=== PATIENT | female | born 1945 | race Caucasian/White ===

== ENCOUNTER 2018-08-26 11:27 | Inpatient (IN) | payer MEDICARE, OTHER ==
--- NOTE | 2018-08-26 12:30 | ED ---
General Adult HPI - General Chief complaint: Extremity Problem,Nontraumatic Stated complaint: HEAVINESS IN LEGS Time Seen by Provider: 08/26/18 11:35 Source: patient, RN notes reviewed Mode of arrival: ambulatory Limitations: no limitations - History of Present Illness Initial comments: This is a 73-year-old female who presents to the emergency department with bilateral leg weakness. Patient states it started on Saturday morning is gotten progressively worse. Patient denies any numbness. Patient denies any urinary incontinence or urinary retention. Patient denies any injury or trauma. Patient states she's having a hard time moving her legs to walk. Patient states she's very unsteady on her feet and is afraid she'll follow-up. Patient states she tells her legs to move and it takes a second or 2 for them to move and then when it does move it's very slow. Patient states her lower legs seemed to be moving okay it's the gross movement of her overall leg that it 's difficult to do. Patient denies any upper extremity weakness or numbness. Patient denies any headache. Patient denies any visual disturbance or speech disturbance. Patient states she's been treated for sinus problems recently. Patient denies any chest pain difficulty breathing shortness of breath. Patient denies any fever or chills.. - Related Data Home Medications Medication Instructions Recorded Confirmed Acetaminophen [Tylenol Extra 1,000 mg PO Q6H PRN 08/26/18 08/26/18 Strength] Atorvastatin [Lipitor] 10 mg PO HS 08/26/18 08/26/18 Cephalexin [Keflex] 500 mg PO Q6H 08/26/18 08/26/18 Cholecalciferol (Vitamin D3) 2,000 unit PO DAILY 08/26/18 08/26/18 [Vitamin D3] Guaifenesin/Dextromethorphan 1 tab PO Q6H PRN 08/26/18 08/26/18 [Coricidin Hbp Softgel] LORazepam [Ativan] 0.5 mg PO HS PRN 08/26/18 08/26/18 Levothyroxine Sodium 100 mcg PO HS 08/26/18 08/26/18 Allergies Allergy/AdvReac Type Severity Reaction Status Date / Time Tetracyclines Allergy Anaphylaxis Verified 08/26/18 12:39 Review of Systems ROS Statement: Those systems with pertinent positive or pertinent negative responses have been documented in the HPI. ROS Other: All systems not noted in ROS Statement are negative. Past Medical History Past Medical History: No Reported History History of Any Multi-Drug Resistant Organisms: None Reported Additional Past Surgical History / Comment(s): fatty tumors removed 1971 Past Psychological History: No Psychological Hx Reported Smoking Status: Current every day smoker Past Alcohol Use History: Occasional Past Drug Use History: None Reported General Exam - General Exam Comments Initial Comments: GENERAL: Patient is well-developed and well-nourished. Patient is nontoxic and well- hydrated and is in mild distress. ENT: Neck is soft and supple. No significant lymphadenopathy is noted. Oropharynx is clear. Moist mucous membranes. Neck has full range of motion without eliciting any pain. EYES: The sclera were anicteric and conjunctiva were pink and moist. Extraocular movements were intact and pupils were equal round and reactive to light. Eyelids were unremarkable. PULMONARY: Unlabored respirations. Good breath sounds bilaterally. No audible rales rhonchi or wheezing was noted. CARDIOVASCULAR: There is a regular rate and rhythm without any murmurs gallops or rubs. ABDOMEN: Soft and nontender with normal bowel sounds. No palpable organomegaly was noted. There is no palpable pulsatile mass. SKIN: Skin is clear with no lesions or rashes and otherwise unremarkable. NEUROLOGIC: Patient is alert and oriented x3. Cranial nerves II through XII are grossly intact. Patient has proximal muscle leg weakness. Sensory is normal. Normal speech, volume and content. Symmetrical smile. Patient has patellar reflexes bilaterally but the left is stronger than the right. MUSCULOSKELETAL: Soft proximal muscles on the legs seemed to be weak bilaterally patient's plantar and dorsiflexion are normal bilaterally patient's sensation is normal. LYMPHATICS: No significant lymphadenopathy is noted PSYCHIATRIC: Normal psychiatric evaluation. Normal interpersonal interactions appears functionally intact in deals appropriately with others. No signs of depression. No signs of anxiety. Limitations: no limitations Course Vital Signs 08/26/18 11:34 Temperature 97.9 F Pulse Rate 102 H Respiratory 18 Rate Blood Pressure 123/78 O2 Sat by Pulse 97 Oximetry Medical Decision Making - Medical Decision Making EKG shows sinus tachycardia at 101 bpm MD interval 236 dresses 78 QT interval 362 QTC is 469. Patient's EKG shows no ST segment elevation or T wave abnormalities are noted. CT of the brain shows no acute abnormality. I spoke with Dr. Cabrera and he agreed to admit the patient admitted the patient wrote admitting orders I consult the neurology. - Lab Data Result diagrams: 08/26/18 12:11 08/26/18 12:11 Lab Results 08/26/18 08/26/18 08/26/18 Range/Units 12:11 12:11 12:11 WBC 8.2 (3.8-10.6) k/uL RBC 4.92 (3.80-5.40) m/uL Hgb 15.8 (11.4-16.0) gm/dL Hct 47.4 H (34.0-46.0) % MCV 96.3 (80.0-100.0) fL MCH 32.1 (25.0-35.0) pg MCHC 33.3 (31.0-37.0) g/dL RDW 13.2 (11.5-15.5) % Plt Count 257 (150-450) k/uL Neutrophils % 75 % Lymphocytes % 13 % Monocytes % 7 % Eosinophils % 1 % Basophils % 1 % Neutrophils # 6.2 (1.3-7.7) k/uL Lymphocytes # 1.1 (1.0-4.8) k/uL Monocytes # 0.6 (0-1.0) k/uL Eosinophils # 0.1 (0-0.7) k/uL Basophils # 0.1 (0-0.2) k/uL PT (9.0-12.0) sec INR (<1.2) APTT (22.0-30.0) sec Sodium 138 (137-145) mmol/L Potassium 4.3 (3.5-5.1) mmol/L Chloride 101 (98-107) mmol/L Carbon Dioxide 26 (22-30) mmol/L Anion Gap 11 mmol/L BUN 16 (7-17) mg/dL Creatinine 0.99 (0.52-1.04) mg/dL Est GFR (CKD-EPI)AfAm 66 (>60 ml/min/1.73 sqM) Est GFR (CKD-EPI)NonAf 57 (>60 ml/min/1.73 sqM) Glucose 171 H (74-99) mg/dL Calcium 9.7 (8.4-10.2) mg/dL Total Bilirubin 0.6 (0.2-1.3) mg/dL AST 25 (14-36) U/L ALT 27 (9-52) U/L Alkaline Phosphatase 49 (38-126) U/L Total Creatine Kinase 54 (30-135) U/L Total Protein 7.4 (6.3-8.2) g/dL Albumin 4.1 (3.5-5.0) g/dL 08/26/18 Range/Units 12:11 WBC (3.8-10.6) k/uL RBC (3.80-5.40) m/uL Hgb (11.4-16.0) gm/dL Hct (34.0-46.0) % MCV (80.0-100.0) fL MCH (25.0-35.0) pg MCHC (31.0-37.0) g/dL RDW (11.5-15.5) % Plt Count (150-450) k/uL Neutrophils % % Lymphocytes % % Monocytes % % Eosinophils % % Basophils % % Neutrophils # (1.3-7.7) k/uL Lymphocytes # (1.0-4.8) k/uL Monocytes # (0-1.0) k/uL Eosinophils # (0-0.7) k/uL Basophils # (0-0.2) k/uL PT 10.4 (9.0-12.0) sec INR 1.1 (<1.2) APTT 25.0 (22.0-30.0) sec Sodium (137-145) mmol/L Potassium (3.5-5.1) mmol/L Chloride (98-107) mmol/L Carbon Dioxide (22-30) mmol/L Anion Gap mmol/L BUN (7-17) mg/dL Creatinine (0.52-1.04) mg/dL Est GFR (CKD-EPI)AfAm (>60 ml/min/1.73 sqM) Est GFR (CKD-EPI)NonAf (>60 ml/min/1.73 sqM) Glucose (74-99) mg/dL Calcium (8.4-10.2) mg/dL Total Bilirubin (0.2-1.3) mg/dL AST (14-36) U/L ALT (9-52) U/L Alkaline Phosphatase (38-126) U/L Total Creatine Kinase (30-135) U/L Total Protein (6.3-8.2) g/dL Albumin (3.5-5.0) g/dL Disposition Clinical Impression: Proximal leg weakness Disposition: ADMITTED IP TO THIS HOSP Referrals: Bryan Valdivia MD [Primary Care Provider] - 1-2 days Time of Disposition: 13:12
--- NOTE | 2018-08-26 12:35 | CT ---
EXAMINATION TYPE: CT brain wo con DATE OF EXAM: 08/26/2018 HISTORY: Leg heaviness, neurodeficits per order. CT DLP: 723.7 mGycm. Automated Exposure Control for Dose Reduction was Utilized. TECHNIQUE: CT scan of the head is performed without contrast. COMPARISON: None. FINDINGS: There is no acute intracranial hemorrhage or midline shift identified. There is diffuse v entricular and sulcal prominence consistent with diffuse age-related cerebral atrophy. Some low atten uation periventricular white matter around frontal horns is present. The globes are intact and the v isualized sinuses are clear. IMPRESSION: No acute intracranial hemorrhage or midline shift. There is mild to minimal diffuse age -related cerebral atrophy and chronic small vessel ischemic change noted. If clinical concern for acute stroke persists further investigation with MRI study may be warranted.
--- NOTE | 2018-08-26 12:35 | XR ---
EXAMINATION TYPE: XR chest 2V DATE OF EXAM: 08/26/2018 COMPARISON: 02/14/2016 HISTORY: Altered mental status TECHNIQUE: Frontal and lateral views of the chest are obtained. FINDINGS: There is no focal air space opacity, pleural effusion, or pneumothorax seen. The cardiac silhouette size is within normal limits. The osseous structures are intact. There is pulmonary hype rinflation and biapical lucency indicative of underlying COPD. Calcified breast implants are seen kenryo aterally. Nonspecific sclerotic focus is seen within the right humeral head. Intervertebral disc calc ification is seen of the thoracolumbar junction. IMPRESSION: No acute cardiopulmonary process. Radiographic sequela of COPD.
[2018-08-26 12:39] LABS: Basophils # (A) 0.1 k/uL (0-0.2); Basophils % (A) 1 %; Eosinophils # (A) 0.1 k/uL (0-0.7); Eosinophils % (A) 1 %; HCT 47.4 % (34.0-46.0); HGB 15.8 gm/dL (11.4-16.0); Lymphocytes # (A) 1.1 k/uL (1.0-4.8); Lymphocytes % (A) 13 %; MCH 32.1 pg (25.0-35.0); MCHC 33.3 g/dL (31.0-37.0); MCV 96.3 fL (80.0-100.0); Mean Platelet Volume 6.9; Monocytes # (A) 0.6 k/uL (0-1.0); Monocytes % (A) 7 %; Neutrophils # (A) 6.2 k/uL (1.3-7.7); Neutrophils % (A) 75 %; Platelet Count 257 k/uL (150-450); RBC 4.92 m/uL (3.80-5.40); RDW 13.2 % (11.5-15.5); WBC 8.2 k/uL (3.8-10.6)
[2018-08-26 12:48] LABS: INR 1.1 (<1.2); Prothrombin Time 10.4 sec (9.0-12.0)
[2018-08-26 12:51] LABS: Albumin 4.1 g/dL (3.5-5.0); Calcium 9.7 mg/dL (8.4-10.2); Potassium 4.3 mmol/L (3.5-5.1); Total Bilirubin 0.6 mg/dL (0.2-1.3); Total Protein 7.4 g/dL (6.3-8.2)
[2018-08-26 13:07] LABS: Creatine Kinase 54 U/L (30-135)
[2018-08-26 13:19] LABS: Creatine Kinase MB 0.7 ng/mL (0.0-2.4); Troponin I <0.012 ng/mL (0.000-0.034)
[2018-08-26] MEDS ORDERED: LORazepam 0.5 MG TAB PO PRN (13:53)
[2018-08-26] MEDS ORDERED: ONDANSETRON 4 MG/2 ML VIAL IVP PRN (13:53)
--- NOTE | 2018-08-26 14:17 | P.HPIM ---
History of Present Illness H&P Date: 08/26/18 Chief Complaint: Lower extremity weakness This is a 73-year-old female with past medical history noted below who presented to the emergency room for further evaluation of lower extremity weakness. Patient said that her problems started on Saturday and it's been getting progressively worse. Patient reported that the weakness is mostly in the proximal lower extremities mostly in her thighs. She said that she was having trouble getting up and walking around. She also had trouble with her balance. Her friend brought her walker that helped her significantly as her balance. Patient otherwise denies any numbness or tingling. No weakness anywhere else in her body. No headache or vision changes. No trauma. No back pain. No fevers or chills. Patient has been taking statin for a long time. No muscle pain. No other complaints at all. Patient was evaluated by me in the emergency room and her physical exam showed 5 /5 muscle strength all over her body including lower extremity. Patient was able to get up and walk around the room with no difficulty. She informed me that her weakness probably resolved. She underwent a computed tomography scan of the brain in the emergency room was no acute intracranial findings. Most of her lab work was within normal range. Review of Systems Review of system: 14 points review of systems were obtained and were negative except to what were mentioned in the HPI. Past Medical History Past Medical History: No Reported History History of Any Multi-Drug Resistant Organisms: None Reported Additional Past Surgical History / Comment(s): fatty tumors removed 1971 Past Psychological History: No Psychological Hx Reported Smoking Status: Current every day smoker Past Alcohol Use History: Occasional Past Drug Use History: None Reported Medications and Allergies Home Medications Medication Instructions Recorded Confirmed Type Acetaminophen [Tylenol Extra 1,000 mg PO Q6H PRN 08/26/18 08/26/18 History Strength] Atorvastatin [Lipitor] 10 mg PO HS 08/26/18 08/26/18 History Cephalexin [Keflex] 500 mg PO Q6H 08/26/18 08/26/18 History Cholecalciferol (Vitamin D3) 2,000 unit PO DAILY 08/26/18 08/26/18 History [Vitamin D3] Guaifenesin/Dextromethorphan 1 tab PO Q6H PRN 08/26/18 08/26/18 History [Coricidin Hbp Softgel] LORazepam [Ativan] 0.5 mg PO HS PRN 08/26/18 08/26/18 History Levothyroxine Sodium 100 mcg PO HS 08/26/18 08/26/18 History Allergies Allergy/AdvReac Type Severity Reaction Status Date / Time Tetracyclines Allergy Anaphylaxis Verified 08/26/18 12:39 Physical Exam Vitals: Vital Signs Temp Pulse Pulse Resp BP BP Pulse Ox 08/26/18 13:20 97.7 F 93 18 151/70 98 08/26/18 13:13 88 18 135/67 97 08/26/18 11:34 97.9 F 102 H 18 123/78 97 Intake and Output 08/25/18 08/26/18 08/26/18 22:59 06:59 14:59 Other: Weight 49.895 kg General: The patient is awake and alert, in no distress Eye: there is normal conjunctiva bilaterally. Neck: The neck is supple, there is no JVD. Cardiovascular: Normal S1-S2, no S3-S4, no murmurs. Respiratory: Lungs clear to auscultation bilaterally Gastrointestinal: Abdomen is soft, nontender Musculoskeletal: There is no pedal edema. Neurological:. Speech is normal. Skin: Skin is warm and dry Results CBC & Chem 7: 08/26/18 12:11 08/26/18 12:11 Labs: Abnormal Lab Results - Last 24 Hours (Table) 08/26/18 08/26/18 Range/Units 12:11 12:11 Hct 47.4 H (34.0-46.0) % Glucose 171 H (74-99) mg/dL Assessment and Plan Assessment: 1. Transient proximal weakness of the lower extremity, now resolved. Computed tomography scan of the brain showed no acute stroke. I really doubt a CVA. I would order CT of the lumbar spine for further evaluation. Patient denies any back pain. I would also order inflammatory marker including ESR and CRP as well as LDH for further evaluation. I doubt any myositis. I would hold her statin for now. PT/OT evaluation. Neurology consulted. 2. Hypothyroidism, on levothyroxine. I would check thyroid function test 3. Generalized anxiety disorder Today, I reviewed her medication list and lab work results. Continue current regimen. Appreciate neurology recommendations. PT/OT evaluation. Patient was updated about her current condition. All of her questions answered to his satisfaction.
[2018-08-26 14:21] VITALS: RESP 16
--- NOTE | 2018-08-26 14:53 | CT ---
EXAMINATION TYPE: CT lumbar spine w con DATE OF EXAM: 08/26/2018 COMPARISON: Lumbar spine x-ray January 13, 2015 HISTORY: Leg heaviness, lower ext weakness CT DLP: 323.2 mGycm Automated exposure control for dose reduction was used. CONTRAST: CT scan of the lumbar is performed with IV Contrast, patient injected with 100 mL of Isovue 300. Enhanced CT of the lumbar spine was performed. Bone and soft tissue window settings are submitted as well as coronal and sagittal reconstructions. There are 5 lumbar-type vertebra redemonstrated though there is sacralization of right L5 segment aga in seen. This asymmetric assimilation on the right may cause patient pain, correlate clinically. Vert ebral body heights and disc space heights are fairly well-maintained. No acute fracture or dislocatio n is seen. Spinal canal is preserved. No large posterior disc herniations are present on sagittal april ges. Hyperdense material is noted at several levels most prominent at posterior T12-L1 level suspecte d calcification. There is mild to moderate multilevel anterior and lateral spurring. Review of axial images shows T12-L1 and L1-L2 levels to appear within normal limits. Axial images at L2-L3 level show mild to moderate broad disc bulge mildly effacing anterior thecal sa c on axial image 29 and causing mild bilateral anterior inferior neural foraminal narrowing. Axial images at L3-L4 level show mild facet degenerative changes bilaterally. There is mild/moderate broad-based posterior disc protrusion effacing anterior thecal sac and axial image 40. There is mild to moderate bilateral anterior inferior neural foraminal narrowing at this level identified. Axial images at L4-L5 level show moderate facet degenerative changes bilaterally. There is broad disc bulge minimally effacing anterior thecal sac. Bilateral neural foramina are patent. Axial images at L5-S1 level show mild to moderate right greater than left facet degenerative changes bilaterally. Spinal canal is preserved and there is increased prominence of epidural fat at this leve l. Bilateral neural foramina are patent. No suspicious enhancement is seen. There is moderate plaque in the infrarenal abdominal aorta extendi ng into branch vessels. Liver is mildly enlarged. Some wall thickening in the visualized stomach is f elt present, correlate for gastritis. IMPRESSION: No suspicious disc herniation seen to account for patient's radiculopathy type symptoms. Other findings as noted above.
[2018-08-26 15:02] LABS: C Reactive Protein <5.0 mg/L (<10.0); LDH 457 U/L (313-618)
[2018-08-26] MEDS: ACETAMINOPHEN TAB 325 MG TAB PO PRN ×2 (15:07→21:49)
[2018-08-26 16:31] LABS: Appearance,Urine Clear (Clear); Bilirubin,Urine Negative (Negative); Blood,Urine Small (Negative); Color,Urine Yellow; Glucose,Urine (UA) Negative (Negative); Ketones,Urine Negative (Negative); Leukocyte Esterase,Urine Negative (Negative); Mucus,Urine Rare /hpf; Nitrite,Urine Negative (Negative); PH, Urine 6.5 (5.0-8.0); Protein,Urine Trace (Negative); RBC,Urine 7 /hpf (0-5); Squamous Epithelial Cell,Urine 2 /hpf (0-4)
[2018-08-26 16:32] LABS: Specific Gravity,Urine >1.050 (1.001-1.035)
[2018-08-26] MEDS ORDERED: LEVOTHYROXINE 100 MCG TAB PO SCH (21:00)
[2018-08-26] MEDS: HEPARIN SODIUM,PORCINE 5,000 UNIT/ML 1 ML VIAL SQ SCH (21:49)
[2018-08-27 05:15] VITALS: BP 145/75; PULSE 82; TEMP 97.3
[2018-08-27] MEDS: ACETAMINOPHEN TAB 325 MG TAB PO PRN (06:23)
[2018-08-27 08:06] LABS: Cholesterol 149 mg/dL (<200); HDL Cholesterol 61 mg/dL (40-60); LDL Cholesterol,Calculated 69 mg/dL (0-99); Triglycerides 96 mg/dL (<150)
--- NOTE | 2018-08-27 08:47 | CONS ---
CONSULTATION DATE OF CONSULTATION: 08/26/2018 CHIEF COMPLAINT: Lower extremity weakness. HISTORY OF PRESENT ILLNESS: Mrs. Hebert is a pleasant 73-year-old female who is being evaluated today on 08/26/2018 by the Neurology Service per the request of Dr. Cabrera for lower extremity weakness. The patient was brought into [facility] emergency room with the complaints of progressive lower extremity weakness that appears to be more proximal than distal. She states that she first noticed these symptoms on Saturday and they have been progressively getting worse. She reports mild muscle soreness but denies anything severe. She denies any recent injury or illness. In reviewing her home medications, she does take Lipitor 10 mg daily at home. She denies any numbness or tingling and denies any low back pain. A CT scan of the brain was done, which was normal. A CT scan of the lumbar spine was done which showed disc bulges at L3-L4 and L4-L5 with mild neural foraminal narrowing. Again, the patient denies any low back pain or lower extremity radicular pain. Her CBC and cardiac enzymes were normal. Her comprehensive metabolic profile was normal except for hyperglycemia at 171. At the time of my evaluation, she reports minimal improvements in her symptoms. PAST MEDICAL HISTORY: Dyslipidemia, arthritis, hypothyroidism. SOCIAL HISTORY: The patient is a current every day smoker. She occasionally drinks alcohol. She denies any drug use. FAMILY HISTORY: Noncontributory. HOME MEDICATIONS: Reviewed in the chart. ALLERGIES: TETRACYCLINE. REVIEW OF SYSTEMS: CONSTITUTIONAL: Negative. EYES: Negative. ENT: Negative. CARDIOVASCULAR: Negative. RESPIRATORY: Negative. NEUROLOGICAL: As mentioned above. GASTROINTESTINAL: Negative. GENITOURINARY: Negative. DERMATOLOGICAL: Negative. MUSCULOSKELETAL: Positive for occasional joint pain. ENDOCRINE: Positive for hypothyroidism. PHYSICAL EXAM: Vital signs show a temperature of 97.8, pulse 65, respirations 16, blood pressure 169/90. GENERAL APPEARANCE: The patient is a well-developed, elderly female who appears to be in no acute distress. HEENT: Normocephalic, atraumatic, no facial asymmetry is seen. Extraocular muscles are intact. NECK: Supple with no masses felt. CARDIOVASCULAR: Regular rate and rhythm. ABDOMEN: Nontender, nondistended. EXTREMITIES: Showed no edema or clubbing. NEUROLOGICAL EXAM: The patient is awake and oriented x3. Speech and language are normal. Strength is full in all four extremities except for 5-/5 strength in bilateral proximal lower extremities. Sensory exam was normal to light touch in all four extremities. No pronator drift is seen. No facial asymmetry is seen on cranial nerve testing. IMPRESSION: 1. Proximal lower extremity weakness. 2. 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 3. History of dyslipidemia. RECOMMENDATION: The patient's weakness is unchanged at this time and she continues to have mild proximal lower extremity weakness on my examination. Her workup has been negative thus far. Except her CT scan of the lumbar spine did show disc bulges with neural foraminal narrowing. The patient denies any low back pain or any radicular pain and has no sensory deficit on my examination. Also, her straight leg raise sign was negative. I doubt that her weakness is due to her CT scan of the lumbar spine finding. I will discontinue Lipitor for now and keep her on IV fluids. Physical Therapy has been consulted. If her weakness improves by tomorrow, she will be cleared for discharge from a neurology standpoint. If her symptoms continue to worsen, she will likely need a muscle biopsy. Continue neuro checks. I will continue to follow with you. Further recommendations to follow. Thank you for allowing me to participate in the care of your patient. If you have any questions, please feel free to contact me. THERESE / TETE: [id number] /
[2018-08-27] MEDS: HEPARIN SODIUM,PORCINE 5,000 UNIT/ML 1 ML VIAL SQ SCH (08:51)
--- NOTE | 2018-08-27 09:46 | P.DS ---
Providers Date of admission: 08/26/18 13:13 Expected date of discharge: 08/27/18 Attending physician: Nahomy Cabrera Consults: 08/26/18 13:13 Consult Physician Routine Consulting Provider: Jose Gonzales Consult Reason/Comments: Proximal leg weakness bilaterally Do you want consulting provider notified?: Yes Primary care physician: [facility] Course: This is a 73-year-old female with past medical history significant for hypothyroidism and hyperlipidemia who presented to the emergency room with transient proximal lower extremity weakness. This started couple of days prior to her presentation and almost resolved upon presentation to the emergency room. Patient was evaluated and a computed tomography scan of the brain showed no acute intracranial findings. Computed tomography scan of the lumbar spine showed mild degenerative disc disease with mild disc bulging but no acute findings otherwise. Most of the findings are appropriate for her age. Patient herself did not have any back pain, lower extremity numbness or tingling, or radiculopathy. Her symptoms were possibly attributed to statin induced myopathy. Patient is been on statin for several years. This might be still a possibility versus physical debility. Patient was seen and evaluated by physical therapy. She is to get up and walk up and down the [place] with no difficulty. Inflammatory markers checked and negative including ESR and CRP. Creatinine kinase was normal. Patient was seen and evaluated by neurology. No further testing is recommended at this time. We will plan to discontinue statin for now and discharge patient home. Patient wanted to go home to spend the holidays at home. She was advised to return to the emergency room if she notices worsening weakness of the lower extremities. Otherwise she will follow- up with her primary care physician as directed Patient Condition at Discharge: Fair Plan - Discharge Summary Discharge Rx Participant: No New Discharge Prescriptions: Continue Acetaminophen [Tylenol Extra Strength] 1,000 mg PO Q6H PRN PRN Reason: Pain LORazepam [Ativan] 0.5 mg PO HS PRN PRN Reason: Anxiety Cholecalciferol (Vitamin D3) [Vitamin D3] 2,000 unit PO DAILY Levothyroxine Sodium 100 mcg PO HS Guaifenesin/Dextromethorphan [Coricidin Hbp Softgel] 1 tab PO Q6H PRN PRN Reason: Cold Symptoms Discontinued Cephalexin [Keflex] 500 mg PO Q6H Atorvastatin [Lipitor] 10 mg PO HS Discharge Medication List Acetaminophen [Tylenol Extra Strength] 1,000 mg PO Q6H PRN 08/26/18 [History] Cholecalciferol (Vitamin D3) [Vitamin D3] 2,000 unit PO DAILY 08/26/18 [History] Guaifenesin/Dextromethorphan [Coricidin Hbp Softgel] 1 tab PO Q6H PRN 08/26/18 [ History] LORazepam [Ativan] 0.5 mg PO HS PRN 08/26/18 [History] Levothyroxine Sodium 100 mcg PO HS 08/26/18 [History] Follow up Appointment(s)/Referral(s): Bryan Valdivia MD [Primary Care Provider] - 3 Days Discharge Disposition: HOME SELF-CARE
[2018-08-27 10:57] VITALS: BMI 17.7
== END 2018-08-27 11:44 | disposition home or self-care (01) | DRG 93 ==
LOC: EC 11:27 → 3SCARD 13:13 → 3NMEDONC 13:46
PROVIDERS: ADMIT Internal Medicine; ATTEND Internal Medicine
DX: G72.0 Drug-induced myopathy (principal); E03.9 Hypothyroidism, unspecified; M51.26 Other intervertebral disc displacement, lumbar region; M51.36 Other intervertebral disc degeneration, lumbar region; M19.90 Unspecified osteoarthritis, unspecified site; E78.5 Hyperlipidemia, unspecified; R73.9 Hyperglycemia, unspecified; R26.81 Unsteadiness on feet; F17.210 Nicotine dependence, cigarettes, uncomplicated; F41.1 Generalized anxiety disorder; T46.6X5A Adverse effect of antihyperlipidemic and antiarteriosclerotic drugs, initial encounter; Z79.890 Hormone replacement therapy; Z79.899 Other long term (current) drug therapy; Z88.1 Allergy status to other antibiotic agents
CPT/HCPCS: 36415; 70450; 71046; 72132; 80053; 80061; 81001; 82550; 82553; 83615; 84443; 84484; 85025; 85610; 85652; 85730; 86038; 86140; 87086; 93005; 99285

== ENCOUNTER → 2018-09-10 | Outpatient (CLI) | payer MEDICARE, OTHER ==
[2018-09-10 20:22] LABS: T4, Free (Free Thyroxine) 2.6 ng/dL (0.80-1.80)
== END | disposition home or self-care (01) ==
LOC: LABWHC1 12:23
PROVIDERS: ATTEND Psychiatry & Neurology Pain Medicine
DX: R53.83 Other fatigue (principal); R53.1 Weakness
CPT/HCPCS: 36415; 82306; 84439; 84443; 84481

== ENCOUNTER → 2019-03-10 | Outpatient (CLI) | payer MEDICARE, OTHER ==
[~2019-03-10] MED LIST: IODINE/POTASS IOD (LUGOLS) 8 ML BTL TOPICAL ONE
[2019-03-10 11:52] LABS: HCT 47.9 % (34.0-46.0); HGB 15.4 gm/dL (11.4-16.0); MCH 30.9 pg (25.0-35.0); MCHC 32.1 g/dL (31.0-37.0); MCV 96.1 fL (80.0-100.0); Mean Platelet Volume 7.8; Platelet Count 304 k/uL (150-450); RBC 4.98 m/uL (3.80-5.40); RDW 13.3 % (11.5-15.5); WBC 6.7 k/uL (3.8-10.6)
[2019-03-10 12:08] LABS: Albumin 4.2 g/dL (3.5-5.0); Calcium 9.7 mg/dL (8.4-10.2); Potassium 4.4 mmol/L (3.5-5.1); Total Bilirubin 0.6 mg/dL (0.2-1.3); Total Protein 7.3 g/dL (6.3-8.2)
--- NOTE | 2019-03-11 08:19 | NM ---
EXAMINATION TYPE: NM DatScan Brain SPECT DATE OF EXAM: 03/10/2019 COMPARISON: CT brain dated 08/26/2018 HISTORY: Essential tremor TECHNIQUE: 10 drops of Lugol's solution was administered 1 hour prior to injection as a thyroid bloc gisela agent. After the administration of 4.4 mCi I-123 Ioflupane DaTscan. Images obtained [address] injection. SPECT images of the brain were acquired with axial and coronal reconstructions. FINDINGS: The DaTSCAN demonstrates normal uptake of tracer throughout the striata. Consequently there is no itzel dence of loss of the pre-synaptic dopaminergic terminals on this investigation. IMPRESSION: This normal appearance is against a diagnosis of idiopathic Parkinson?s disease (PD) or a Parkinsonia n syndrome (PS) and is seen in healthy individuals and also patients with essential tremor (ET), drug induced parkinsonism, and vascular pseudo-parkinsonism.
== END | disposition home or self-care (01) ==
LOC: RADNMMAIN 10:53
PROVIDERS: ATTEND Psychiatry & Neurology Neurology
DX: G25.0 Essential tremor (principal); R42 Dizziness and giddiness; Z51.81 Encounter for therapeutic drug level monitoring
CPT/HCPCS: 83519; 80053; 82550; 85027; 78607; 36415; A9584

== ENCOUNTER 2019-04-29 09:42 | Inpatient (IN) | payer MEDICARE, OTHER ==
[2019-04-29] MEDS ORDERED: SODIUM CHLORIDE 0.9% 1,000 ML IV STA (09:58)
[2019-04-29] MEDS ORDERED: SODIUM CHLORIDE 0.9% 500 ML 500 ML IV STA (09:58)
[2019-04-29] MEDS ORDERED: IPRATROPIUM-ALBUTEROL 3 ML NEB INHALATION STA (10:00)
--- NOTE | 2019-04-29 10:06 | ED ---
Weakness HPI - General Chief complaint: Weakness Stated complaint: Weakness Time Seen by Provider: 04/29/19 09:42 Source: patient, EMS, RN notes reviewed, old records reviewed Mode of arrival: EMS Limitations: altered mental status, physical limitation - History of Present Illness Initial comments: Is a 74-year-old female history of CVA with minimal left-sided residual effects who was brought in because of generalized weakness nausea and a headache this morning. Apparently she's not been doing well last several days. She was noted have a room air pulse ox of 80% when up into the high 90s on oxygen. Per paramedics patient was able to answer simple yes no questions but with further discussion she would have garbled speech. No other complaints no reports of fevers chills sweats cough phlegm production or dysuria. MD Complaint: generalized weakness - Related Data Home Medications Medication Instructions Recorded Confirmed Cholecalciferol (Vitamin D3) 2,000 unit PO DAILY 08/26/18 04/29/19 [Vitamin D3] LORazepam [Ativan] 0.5 mg PO HS 08/26/18 04/29/19 Levothyroxine Sodium 100 mcg PO HS 08/26/18 04/29/19 Dm/Acetaminophen/Doxylamine [Vicks 1 cap PO HS 04/29/19 04/29/19 Nyquil Liquicaps] Allergies Allergy/AdvReac Type Severity Reaction Status Date / Time Tetracyclines Allergy Anaphylaxis Verified 04/29/19 10:02 Review of Systems ROS Statement: Those systems with pertinent positive or pertinent negative responses have been documented in the HPI. ROS Other: All systems not noted in ROS Statement are negative. Past Medical History Past Medical History: Hyperlipidemia, Osteoarthritis (OA), Thyroid Disorder Additional Past Medical History / Comment(s): Recent sinus problem treated with antibiotics, hypothyroid, borderline high cholesterol. arthritis in hands, shoulders and knees. History of Any Multi-Drug Resistant Organisms: None Reported Additional Past Surgical History / Comment(s): fatty tumors removed from breasts in 1971 Past Anesthesia/Blood Transfusion Reactions: No Reported Reaction Past Psychological History: Anxiety Smoking Status: Current every day smoker - Past Family History Father Family Medical History: No Reported History Additional Family Medical History / Comment(s): Father never went to the doctor. He at the age of 73 yrs. Mother Family Medical History: Osteoarthritis (OA), Rheumatoid Arthritis (RA) Additional Family Medical History / Comment(s): Mother had severe arthritis. She lived to be 80 yrs old. General Exam - General Exam Comments Initial Comments: This is a well-developed asthenic appearing female who is awake alert oriented x3 demonstrating some slurring of speech Limitations: altered mental status, physical limitation General appearance: alert, in no apparent distress Head exam: Present: atraumatic, normocephalic, normal inspection Eye exam: Present: normal appearance, PERRL, EOMI. Absent: scleral icterus, conjunctival injection, periorbital swelling ENT exam: Present: mucous membranes dry Neck exam: Present: normal inspection, full ROM, other. Absent: tenderness, meningismus, lymphadenopathy Respiratory exam: Present: decreased breath sounds. Absent: respiratory distress, wheezes, rales, rhonchi, stridor Cardiovascular Exam: Present: normal rhythm, tachycardia, normal heart sounds. Absent: systolic murmur, diastolic murmur, rubs, gallop, clicks GI/Abdominal exam: Present: soft, normal bowel sounds. Absent: distended, tenderness, guarding, rebound, rigid Extremities exam: Present: normal inspection, full ROM, normal capillary refill. Absent: tenderness, pedal edema, joint swelling, calf tenderness Back exam: Present: normal inspection Neurological exam: Present: alert, oriented X3, CN II-XII intact Psychiatric exam: Present: normal affect, normal mood Skin exam: Present: warm, dry, intact, normal color. Absent: rash Course Vital Signs 04/29/19 04/29/19 04/29/19 09:45 10:25 10:34 Temperature 98.2 F Pulse Rate 114 H 104 H 100 Respiratory 18 Rate Blood Pressure 118/76 O2 Sat by Pulse 91 L Oximetry EKG Findings - EKG Results: EKG: interpreted by ERMD (Sinus tachycardia rate 101 appear interval 140 QRS duration 76 QT since QTC 360/477), sinus rhythm (Sinus tachycardia rate 101 ap pear interval 140 QRS duration 76 QT since QTC 368/477) Medical Decision Making - Medical Decision Making I did discuss the findings with the patient family member apparently patient did have a syncopal episode this morning I did discuss case with Dr. Perez the patient be admitted for evaluation the patient did improve after the nebulizer treatment. - Lab Data Result diagrams: 04/29/19 09:54 04/29/19 09:54 Lab Results 04/29/19 04/29/19 04/29/19 Range/Units 09:54 09:54 09:54 WBC 16.5 H (3.8-10.6) k/uL RBC 4.63 (3.80-5.40) m/uL Hgb 14.8 (11.4-16.0) gm/dL Hct 44.6 (34.0-46.0) % MCV 96.4 (80.0-100.0) fL MCH 32.1 (25.0-35.0) pg MCHC 33.3 (31.0-37.0) g/dL RDW 14.0 (11.5-15.5) % Plt Count 254 (150-450) k/uL Neutrophils % 86 % Lymphocytes % 7 % Monocytes % 5 % Eosinophils % 1 % Basophils % 0 % Neutrophils # 14.2 H (1.3-7.7) k/uL Lymphocytes # 1.2 (1.0-4.8) k/uL Monocytes # 0.8 (0-1.0) k/uL Eosinophils # 0.1 (0-0.7) k/uL Basophils # 0.1 (0-0.2) k/uL PT (9.0-12.0) sec INR (<1.2) APTT (22.0-30.0) sec Sodium 143 (137-145) mmol/L Potassium 4.5 (3.5-5.1) mmol/L Chloride 103 (98-107) mmol/L Carbon Dioxide 31 H (22-30) mmol/L Anion Gap 9 mmol/L BUN 17 (7-17) mg/dL Creatinine 0.80 (0.52-1.04) mg/dL Est GFR (CKD-EPI)AfAm 84 (>60 ml/min/1.73 sqM) Est GFR (CKD-EPI)NonAf 73 (>60 ml/min/1.73 sqM) Glucose 126 H (74-99) mg/dL Plasma Lactic Acid Stefan 1.8 (0.7-2.0) mmol/L Calcium 9.7 (8.4-10.2) mg/dL Magnesium 1.8 (1.6-2.3) mg/dL Total Bilirubin 0.7 (0.2-1.3) mg/dL AST 19 (14-36) U/L ALT 16 (9-52) U/L Alkaline Phosphatase 82 (38-126) U/L Creatine Kinase 28 L (30-135) U/L Troponin I (0.000-0.034) ng/mL Total Protein 7.1 (6.3-8.2) g/dL Albumin 4.0 (3.5-5.0) g/dL TSH (0.465-4.680) mIU/L Free T4 (0.78-2.19) ng/dL 04/29/19 04/29/19 04/29/19 Range/Units 09:54 09:54 09:54 WBC (3.8-10.6) k/uL RBC (3.80-5.40) m/uL Hgb (11.4-16.0) gm/dL Hct (34.0-46.0) % MCV (80.0-100.0) fL MCH (25.0-35.0) pg MCHC (31.0-37.0) g/dL RDW (11.5-15.5) % Plt Count (150-450) k/uL Neutrophils % % Lymphocytes % % Monocytes % % Eosinophils % % Basophils % % Neutrophils # (1.3-7.7) k/uL Lymphocytes # (1.0-4.8) k/uL Monocytes # (0-1.0) k/uL Eosinophils # (0-0.7) k/uL Basophils # (0-0.2) k/uL PT 10.2 (9.0-12.0) sec INR 0.9 (<1.2) APTT 25.4 (22.0-30.0) sec Sodium (137-145) mmol/L Potassium (3.5-5.1) mmol/L Chloride (98-107) mmol/L Carbon Dioxide (22-30) mmol/L Anion Gap mmol/L BUN (7-17) mg/dL Creatinine (0.52-1.04) mg/dL Est GFR (CKD-EPI)AfAm (>60 ml/min/1.73 sqM) Est GFR (CKD-EPI)NonAf (>60 ml/min/1.73 sqM) Glucose (74-99) mg/dL Plasma Lactic Acid Stefan (0.7-2.0) mmol/L Calcium (8.4-10.2) mg/dL Magnesium (1.6-2.3) mg/dL Total Bilirubin (0.2-1.3) mg/dL AST (14-36) U/L ALT (9-52) U/L Alkaline Phosphatase (38-126) U/L Creatine Kinase (30-135) U/L Troponin I <0.012 (0.000-0.034) ng/mL Total Protein (6.3-8.2) g/dL Albumin (3.5-5.0) g/dL TSH 0.020 L (0.465-4.680) mIU/L Free T4 2.02 (0.78-2.19) ng/dL - Radiology Data Radiology results: report reviewed, image reviewed (I did review the imaging and report no acute findings) Disposition Clinical Impression: Syncope, Dysphasia, Bronchospasm, Failure to thrive Disposition: ADMITTED IP TO THIS [facility] Condition: Fair Referrals: Bryan Valdivia MD [Primary Care Provider] - 1-2 days
[2019-04-29 10:21] LABS: Basophils # (A) 0.1 k/uL (0-0.2); Basophils % (A) 0 %; Eosinophils # (A) 0.1 k/uL (0-0.7); Eosinophils % (A) 1 %; HCT 44.6 % (34.0-46.0); HGB 14.8 gm/dL (11.4-16.0); Lymphocytes # (A) 1.2 k/uL (1.0-4.8); Lymphocytes % (A) 7 %; MCH 32.1 pg (25.0-35.0); MCHC 33.3 g/dL (31.0-37.0); MCV 96.4 fL (80.0-100.0); Mean Platelet Volume 8.3; Monocytes # (A) 0.8 k/uL (0-1.0); Monocytes % (A) 5 %; Neutrophils # (A) 14.2 k/uL (1.3-7.7); Neutrophils % (A) 86 %; Platelet Count 254 k/uL (150-450); RBC 4.63 m/uL (3.80-5.40); WBC 16.5 k/uL (3.8-10.6)
[2019-04-29 10:36] LABS: Calcium 9.7 mg/dL (8.4-10.2); Magnesium 1.8 mg/dL (1.6-2.3); Potassium 4.5 mmol/L (3.5-5.1); Total Bilirubin 0.7 mg/dL (0.2-1.3); Total Protein 7.1 g/dL (6.3-8.2)
[2019-04-29 10:42] LABS: INR 0.9 (<1.2); Partial Thromboplastin Time 25.4 sec (22.0-30.0); Prothrombin Time 10.2 sec (9.0-12.0)
--- NOTE | 2019-04-29 11:02 | XR ---
EXAMINATION TYPE: XR chest 2V DATE OF EXAM: 04/29/2019 COMPARISON: Chest x-ray August 26, 2018 HISTORY: Weakness. TECHNIQUE: Frontal and lateral views of the chest are obtained. FINDINGS: There is chronic parenchymal change without suspicious focal air space opacity, pleural ef fusion, or pneumothorax seen. The cardiac silhouette size remains within normal limits. Overlying ca lcified bilateral breast implants are redemonstrated The osseous structures are intact. IMPRESSION: Chronic changes without new acute pulmonary process.
--- NOTE | 2019-04-29 11:21 | CT ---
EXAMINATION TYPE: CT brain wo con DATE OF EXAM: 04/29/2019 HISTORY: Weakness CT DLP: 1035.4 mGycm. Automated Exposure Control for Dose Reduction was Utilized. TECHNIQUE: CT scan of the head is performed without contrast. COMPARISON: CT brain August 26, 2018 FINDINGS: There is no acute intracranial hemorrhage or midline shift identified. There is mild diff use ventricular and sulcal prominence consistent with diffuse age-related cerebral atrophy. There is low-attenuation in the periventricular white matter consistent with chronic small vessel ischemic ch aditi. The globes are intact and the visualized sinuses are clear. Persistent anterior metopic sutu re which is normal variant. IMPRESSION: No acute intracranial hemorrhage or midline shift. There is mild diffuse age-related ce rebral atrophy and chronic small vessel ischemic change redemonstrated. No significant change from p rior.
[2019-04-29 12:03] LABS: T4, Free (Free Thyroxine) 2.02 ng/dL (0.78-2.19)
[2019-04-29] MEDS ORDERED: NALOXONE 0.4 MG/ML 1 ML VIAL IV PRN (14:30)
--- NOTE | 2019-04-29 14:38 | ED ---
Medical Decision Making - Lab Data Result diagrams: 04/29/19 09:54 04/29/19 09:54 Lab Results 04/29/19 04/29/19 04/29/19 Range/Units 09:54 09:54 09:54 WBC 16.5 H (3.8-10.6) k/uL RBC 4.63 (3.80-5.40) m/uL Hgb 14.8 (11.4-16.0) gm/dL Hct 44.6 (34.0-46.0) % MCV 96.4 (80.0-100.0) fL MCH 32.1 (25.0-35.0) pg MCHC 33.3 (31.0-37.0) g/dL RDW 14.0 (11.5-15.5) % Plt Count 254 (150-450) k/uL Neutrophils % 86 % Lymphocytes % 7 % Monocytes % 5 % Eosinophils % 1 % Basophils % 0 % Neutrophils # 14.2 H (1.3-7.7) k/uL Lymphocytes # 1.2 (1.0-4.8) k/uL Monocytes # 0.8 (0-1.0) k/uL Eosinophils # 0.1 (0-0.7) k/uL Basophils # 0.1 (0-0.2) k/uL PT (9.0-12.0) sec INR (<1.2) APTT (22.0-30.0) sec Sodium 143 (137-145) mmol/L Potassium 4.5 (3.5-5.1) mmol/L Chloride 103 (98-107) mmol/L Carbon Dioxide 31 H (22-30) mmol/L Anion Gap 9 mmol/L BUN 17 (7-17) mg/dL Creatinine 0.80 (0.52-1.04) mg/dL Est GFR (CKD-EPI)AfAm 84 (>60 ml/min/1.73 sqM) Est GFR (CKD-EPI)NonAf 73 (>60 ml/min/1.73 sqM) Glucose 126 H (74-99) mg/dL Plasma Lactic Acid Stefan 1.8 (0.7-2.0) mmol/L Calcium 9.7 (8.4-10.2) mg/dL Magnesium 1.8 (1.6-2.3) mg/dL Total Bilirubin 0.7 (0.2-1.3) mg/dL AST 19 (14-36) U/L ALT 16 (9-52) U/L Alkaline Phosphatase 82 (38-126) U/L Creatine Kinase 28 L (30-135) U/L Troponin I (0.000-0.034) ng/mL Total Protein 7.1 (6.3-8.2) g/dL Albumin 4.0 (3.5-5.0) g/dL TSH (0.465-4.680) mIU/L Free T4 (0.78-2.19) ng/dL 04/29/19 04/29/19 04/29/19 Range/Units 09:54 09:54 09:54 WBC (3.8-10.6) k/uL RBC (3.80-5.40) m/uL Hgb (11.4-16.0) gm/dL Hct (34.0-46.0) % MCV (80.0-100.0) fL MCH (25.0-35.0) pg MCHC (31.0-37.0) g/dL RDW (11.5-15.5) % Plt Count (150-450) k/uL Neutrophils % % Lymphocytes % % Monocytes % % Eosinophils % % Basophils % % Neutrophils # (1.3-7.7) k/uL Lymphocytes # (1.0-4.8) k/uL Monocytes # (0-1.0) k/uL Eosinophils # (0-0.7) k/uL Basophils # (0-0.2) k/uL PT 10.2 (9.0-12.0) sec INR 0.9 (<1.2) APTT 25.4 (22.0-30.0) sec Sodium (137-145) mmol/L Potassium (3.5-5.1) mmol/L Chloride (98-107) mmol/L Carbon Dioxide (22-30) mmol/L Anion Gap mmol/L BUN (7-17) mg/dL Creatinine (0.52-1.04) mg/dL Est GFR (CKD-EPI)AfAm (>60 ml/min/1.73 sqM) Est GFR (CKD-EPI)NonAf (>60 ml/min/1.73 sqM) Glucose (74-99) mg/dL Plasma Lactic Acid Stefan (0.7-2.0) mmol/L Calcium (8.4-10.2) mg/dL Magnesium (1.6-2.3) mg/dL Total Bilirubin (0.2-1.3) mg/dL AST (14-36) U/L ALT (9-52) U/L Alkaline Phosphatase (38-126) U/L Creatine Kinase (30-135) U/L Troponin I <0.012 (0.000-0.034) ng/mL Total Protein (6.3-8.2) g/dL Albumin (3.5-5.0) g/dL TSH 0.020 L (0.465-4.680) mIU/L Free T4 2.02 (0.78-2.19) ng/dL Disposition Clinical Impression: Syncope, Dysphasia, Bronchospasm, Failure to thrive, Dehydration Disposition: ADMITTED IP TO THIS HOSP Condition: Fair Referrals: Bryan Valdivia MD [Primary Care Provider] - 1-2 days
[2019-04-29 14:56] LABS: Appearance,Urine Cloudy (Clear); Bilirubin,Urine 1+ (Negative); Blood,Urine Large (Negative); Color,Urine Light Red; Glucose,Urine (UA) Negative (Negative); Ketones,Urine Negative (Negative); Leukocyte Esterase,Urine Negative (Negative); Nitrite,Urine Negative (Negative); PH, Urine 5.5 (5.0-8.0); Protein,Urine 1+ (Negative); RBC,Urine >182 /hpf (0-5); Specific Gravity,Urine 1.027 (1.001-1.035); Squamous Epithelial Cell,Urine 3 /hpf (0-4)
[2019-04-29] MEDS: SODIUM CHLORIDE 0.9% 1,000 ML IV SCH ×2 (15:26→21:13)
[2019-04-29] MEDS ORDERED: LORazepam 2 MG/ML INJ IV PRN (17:26)
--- NOTE | 2019-04-29 18:19 | HP ---
HISTORY AND PHYSICAL CHIEF COMPLAINT: Failure to thrive and general debility and decline. HISTORY OF PRESENT ILLNESS: This is the first known admission for this 74-year-old white female. Family brought her in because she was not able to stand. She was first noticed to be deteriorating in August of 2018. She was normal up until then. Since then she has continued to fail, with progressive weakness in all 4 extremities, ataxia, and now difficulty swallowing. She has been losing weight. She has been going to a neurologist and has had numerous workups which include an MRI and various other studies. She was being considered recently for a spinal tap and also a muscle biopsy. There has been no history of headache, trauma, and her cognitive function has been fairly well preserved. She has a little trouble with dysarthria. REVIEW OF SYSTEMS: Otherwise unremarkable. There is no history of focal neurologic problems, seizures, head injuries, visual or hearing problems, chest pain, shortness of breath, abdominal pain, vomiting, diarrhea, melena, hematochezia, renal disease, incontinence, diabetes, etc. Past medical history, family history, and personal and social histories are otherwise essentially unremarkable. CURRENT MEDICATIONS: Current medications include: 1. Vitamin D3. 2. Synthroid. 3. Ativan. ALLERGIES: TETRACYCLINE. She has not had any surgery. She used to smoke in the past. It is interesting that before this event started to occur, she received some vaccine. It sounds like she received the new shingles vaccine as well. PHYSICAL EXAMINATION: Blood pressure 138/78, pulse 108, respirations 19. She is afebrile. In general, she appeared to be slender, somewhat poorly nourished and slightly dehydrated. She is awake and alert. There is significant generalized muscle atrophy. Head, ears, eyes, nose, mouth and throat were normal. She did have difficulty with dysarthria. She seemed oriented. Carotids are normal. Neck veins are not distended. Chest is clear to auscultation. Cardiac exam demonstrated sinus rhythm with no murmurs. The abdomen is flat, soft and nontender without any visceromegaly or masses. She had solidified breast implants. Extremities were normal with reasonably good circulation. She did have muscle fasciculations that could be seen in the proximal upper extremities. Toes were downgoing. She is admitted to the hospital with the probable diagnosis of amyotrophic lateral sclerosis. PLAN: 1. Bed rest. 2. Neurology consult. 3. environmental services project manager consult. 4. Consider PEG tube placement. 5. Begin dealing with end-of-life issues. THERESE / TETE: [id number] /
--- NOTE | 2019-04-29 20:43 | P.CNNES ---
History of Present Illness Consult date: 04/29/19 Requesting physician: Carlin Chowdhury Reason for Consult: Dysphagia Chief complaint: Progressive muscle weakness and diffiulty swallowing History of Present Illness: This is a 74 RH female who started having weakness that started in the BLE weakness that started sometime last year. The only inpatient neuro records we have available are from a neuro consultation in 08/[address] Tejeda who noted intact mental status, normal speech and 5-/5 strength in the proximal BLE. She did have CT L-spine that showed disc bulges with neuroforaminal stenosis. Since the above hospitalization, patient has gone on to see numerous neurologists who did a plethora of neuro testing including MRIs and blood tests. There were talks about CSF analysis and muscle biopsy. I do not have the details regarding the gladys stewart. Patient is here today because of progressive weakness, recurrent falls, difficulty with swallowing with unintentional weight loss. She has difficulty even swallowing water that can cause her to choke. She did have an EMG/NCS, but not by neuromuscular subspecialist. Neurologically, patient denies decreased level or loss of consciousness, cognitive changes, headache, changes in vision, diplopia, amaurosis, facial numbness or droop, ptosis, vertigo, aphasia, other focal numbness/weakness not mentioned above, tremors or bowel/bladder incontinence. She is being admitted for FTT. Review of Systems I have performed a 14-point organ ROS with patient; pertinents are as per HPI. Past Medical History Past Medical History: CVA/TIA, Hyperlipidemia, Osteoarthritis (OA), Thyroid Disorder Additional Past Medical History / Comment(s): Pt has had hx of 2 CVAs-first CVA without residual-2nd CVA with R eye vision changes and R sided weakness both arm/leg with eventual resolve, August 2018 pt began to experience weakness/ambulatory difficulty-has had numerous tests/work ups and cause not found-she has started to also have problems with coughing/swallowing/speaking/developed tremors and now needs assistance with all her ADLS-daughter states that now physician's are thinking possibly Jessica Geigs, recent R shoulder pain, recent fall with rib fractures, arthritis bilateral hands/shoulders/knees, cataracts, headaches, hypothyroid, sinus problems. History of Any Multi-Drug Resistant Organisms: None Reported Past Surgical History: Tonsillectomy Additional Past Surgical History / Comment(s): fatty tumors removed from breasts in 1971, colonoscopy, D&C Past Anesthesia/Blood Transfusion Reactions: No Reported Reaction Smoking Status: Current every day smoker - Past Family History Father Family Medical History: No Reported History Additional Family Medical History / Comment(s): Father never went to the doctor. He at the age of 73 yrs. Mother Family Medical History: Osteoarthritis (OA), Rheumatoid Arthritis (RA) Additional Family Medical History / Comment(s): Mother had severe arthritis. She lived to be 80 yrs old. Medications and Allergies Home Medications Medication Instructions Recorded Confirmed Type Cholecalciferol (Vitamin D3) 2,000 unit PO DAILY 08/26/18 04/29/19 History [Vitamin D3] LORazepam [Ativan] 0.5 mg PO HS 08/26/18 04/29/19 History Levothyroxine Sodium 100 mcg PO HS 08/26/18 04/29/19 History Dm/Acetaminophen/Doxylamine [Vicks 1 cap PO HS 04/29/19 04/29/19 History Nyquil Liquicaps] Allergies Allergy/AdvReac Type Severity Reaction Status Date / Time Tetracyclines Allergy Anaphylaxis Verified 04/29/19 10:02 Physical Examination - Vital Signs Vital Signs: Vital Signs Temp Pulse Resp BP Pulse Ox 04/29/19 19:10 19 04/29/19 15:30 19 145/68 04/29/19 15:00 20 163/91 04/29/19 14:49 98.9 F 108 H 19 04/29/19 14:30 108/84 04/29/19 14:00 138/78 100 04/29/19 13:30 130/88 100 04/29/19 13:00 140/65 100 04/29/19 12:30 129/61 98 04/29/19 12:00 123/67 99 04/29/19 11:30 124/82 100 04/29/19 11:00 111/61 100 04/29/19 10:34 100 04/29/19 10:30 121/67 100 04/29/19 10:25 104 H 04/29/19 10:00 118/76 04/29/19 09:45 98.2 F 114 H 18 118/76 91 L Intake and Output 04/29/19 04/29/19 04/29/19 06:59 14:59 22:59 Other: Voiding Method Bedpan Diaper Incontinent Weight 45.359 kg Gen NAD Pleasant and cooperative HEENT NCAT Sclera without icterus O/P clear Neck Supple No carotid bruit Cor RRR no m/r/g Lungs CTAB Abd Soft NTND +BS Ext Warm to touch No edema Neuro MS A+Ox4 Able to follow all commands CN PERRL VFF no APD EOMI no nystagmus or MAXIMILIANO No facial diplegia or ptosis Masseter's symmetric Hearing intact to normal voice bilaterally Speech quite dysarthric and difficult to understand Equal elevation of palate Tongue midline I do not appreciate any fasciculations Sym shrug and SCM bilaterally Motor Generalized decreased bulk with atrophy of interossei Normal tone No pronator or leg drift Few fasciculations only on percussion in the bilateral gastrocnemius No tremors Strength surprsingly strong 5/5 distally and 5-/5 proximally in both upper and lower extremities Sens Intact to LT x4 No neglect or extinction Coord No dysmetria on FTN bilaterally DTRs 3+/4 sym throughout Toes upgoing bilaterally No clonus at achilles Gait Deferred Results - Laboratory Findings CBC and BMP: 04/29/19 09:54 04/29/19 09:54 Abnormal Lab Findings: Abnormal Labs 04/29/19 04/29/19 04/29/19 09:54 09:54 09:54 WBC 16.5 H Neutrophils # 14.2 H Carbon Dioxide 31 H Glucose 126 H Creatine Kinase 28 L TSH 0.020 L Urine Appearance Urine Protein Urine Blood Urine Bilirubin Urine RBC 04/29/19 Unknown WBC Neutrophils # Carbon Dioxide Glucose Creatine Kinase TSH Urine Appearance Cloudy H Urine Protein 1+ H Urine Blood Large H Urine Bilirubin 1+ H Urine RBC >182 H - Diagnostic Findings Additional findings: CT Head wo cont 04/29/19. Mild global atrophy and mild subcortical vascular burden. No ICH. Nil acute. DaTScan 04/29/19. Normal wo findings suggestive of ET, PD or PS. CT L-spine w cont 04/29/19. At L2 to L3, mild to moderate broad disc bulge mildly effacing the anterior thecal sac with mild bilateral anterior inferior neural foraminal stenosis. At L3 to L4, mild facet degenerative changes bilaterally with mild to moderate bilateral anterior inferior neuroforaminal stenosis. At L4 to L5, moderate facet degenerative changes bilaterally. Broad disc bulge effacing the anterior thecal sac but with patent bilateral neuroforamina. At L5 to S1, mild to moderate right greater than left facet degenerative changes bilaterally. Spinal canals preserved. There is no neural foraminal stenosis at this level. No abnormal enhancement is seen. I have reviewed neuroimages myself. Assessment and Plan Assessment: Progressive muscle atrophy, weakness, ataxia and bulbar dysfunction with fasciculations and hyperreflexia on exam. Indeed concerning for motor neuron disease or other peripheral process. Plan: -To confirm a diagnosis of motor neuron disease, patients are generally referred to neuromuscular subspecialist for confirmatory EMG. This will be done after her acute stay. -Patient does not wish to have repeat neuro testing as she has already seen numerous local community neurologists. This is certainly reasonable and understandable. -Discussed goals of care regarding this hospitalization. Will focus on her immediate safety, i.e. ambulation, transferring, swallowing. -TSH 0.02 but free T4 normal at 2.02. Defer to primary team as this is a medical issue. -Consult PT/OT/SP. May need PEG. -DVT prophylaxis. -d/w patient in detail. All questions answered. Thank you for this consultation. Please call with ?. Time with Patient: Greater than 30 (Time spent in direct patient care, greater than 50% of which was spent in [id number] counseling and coordination of care: 70 minutes.)
[2019-04-29] MEDS: LORazepam 2 MG/ML INJ IV PRN (21:12)
[2019-04-29] MEDS: LEVOTHYROXINE IVP 100 MCG/5 ML VIAL IV SCH (21:12)
[2019-04-30] MEDS: SODIUM CHLORIDE 0.9% 1,000 ML IV SCH ×3 (05:45→21:10)
--- NOTE | 2019-04-30 14:45 | P.PN ---
Subjective Progress Note Date: 04/30/19 Principal diagnosis: Progressive muscular weakness, ataxia and bulbar dysfunction No acute events O/N. Best friend at bedside states her swallowing has been deteriorating over the past 2-3 weeks. SP is at bedside evaluating patient. No new neuro c/o. Objective - Vital Signs Vital signs: Vital Signs Temp 98.3 F 04/30/19 12:33 Pulse 90 04/30/19 12:33 Resp 16 04/30/19 12:33 BP 150/51 04/30/19 12:33 Pulse Ox 99 04/30/19 12:33 Intake & Output 04/29/19 04/30/19 04/30/19 18:59 06:59 18:59 Intake Total 1000 Balance 1000 Weight 45.359 kg 45.359 kg Intake: Intake, IV Titration 1000 Amount Sodium Chloride 0.9% 1, 1000 000 ml @ 125 mls/hr IV . Q8H [facility] Rx#:[id number] Other: Voiding Method Bedpan Bedpan Diaper Diaper Incontinent Incontinent # Voids 1 1 - Exam Gen NAD Pleasant and cooperative MS A+Ox4 Able to follow all commands CN PERRL VFF no APD EOMI no nystagmus or MAXIMILIANO No facial diplegia or ptosis Masseter's symmetric Hearing intact to normal voice bilaterally Speech quite dysarthric and difficult to understand Equal elevation of palate Tongue midline I do not appreciate any fasciculations Sym shrug and SCM bilaterally Motor Generalized decreased bulk with atrophy of interossei Normal tone No pronator or leg drift Few fasciculations only on percussion in the bilateral gastrocnemius No tremors Strength surprsingly strong 5/5 distally and 5-/5 proximally in both upper and lower extremities Sens Intact to LT x4 No neglect or extinction Coord No dysmetria on FTN bilaterally DTRs 3+/4 sym throughout Toes upgoing bilaterally No clonus at achilles Gait Deferred - Labs CBC & Chem 7: 04/29/19 09:54 04/29/19 09:54 Labs: Abnormal Lab Results - Last 24 Hours (Table) 04/29/19 Range/Units Unknown Urine Appearance Cloudy H (Clear) Urine Protein 1+ H (Negative) Urine Blood Large H (Negative) Urine Bilirubin 1+ H (Negative) Urine RBC >182 H (0-5) /hpf Assessment and Plan Assessment: Progressive muscle atrophy, weakness, ataxia and bulbar dysfunction with concerns for motor neuron disease or other peripheral process such as myopathy. Plan: -Once again discussed goals of care of this hospitalization, which would be to ensure her safety and access to nutrition -PT/OT/SP with question of need for PEG -No further inpatient neurological testing at this time -She will need outpatient follow up/evaluation by a neuromuscular subspecialist for confirmatory EMG. Potential facilities where they are located given to patient -TSH 0.02 but free T4 normal at 2.02. Defer to primary team as this is a medical issue -DVT prophylaxis -d/w patient in detail. All questions answered -No other inpatient neuro recs at this time. Will revisit patient prn. Thank you again for this consultation. Please call with any ?. Time with Patient: Less than 30 (Time spent in direct patient care, greater than 50% of which was spent in [id number] counseling and coordination of care: 25 minutes)
--- NOTE | 2019-04-30 15:03 | P.GSCN ---
History of Present Illness Consult date: 04/30/19 Reason for Consult: PEG tube placement Requesting physician: Navjot Perez History of present illness: CHIEF COMPLAINT: PEG tube placement HISTORY OF PRESENT ILLNESS: 74 year old female who is admitted to the hospital secondary to weakness, failure to thrive, and dysphagia. there is no family at the bedside. Patient is a poor historian secondary to difficulty speaking. She is being worked up by neurology service for progressive muscle weakness and ataxia. Apparently the patient has been choking on foods at home and has experienced unintentional weight loss. Current BMI 16.1. speech therapy was consulted for evaluation. Bedside swallow exam was completed. Per ST, patient was audibly gurgling on applesauce. No plans for modified barium swallow at this time. PAST MEDICAL HISTORY: See list. PAST SURGICAL HISTORY: See list. SOCIAL HISTORY: No illicit drug use. REVIEW OF SYSTEMS: CONSTITUTIONAL: Denies fever or chills. HEENT: Denies blurred vision, vision changes, or eye pain. Denies hemoptysis CARDIOVASCULAR: Denies chest pain or pressure. RESPIRATORY: No shortness of breath. GASTROINTESTINAL: Refer to HPI for pertinent findings HEMATOLOGIC: Denies bleeding disorders. GENITOURINARY: Denies any blood in urine. SKIN: Denies pruitis. Denies rash. PHYSICAL EXAM: VITAL SIGNS: Reviewed. GENERAL: Well-developed in no acute distress. Thin. HEENT: No sclera icterus. Extraocular movements grossly intact. Moist buccal mucosa. Head is atraumatic, normocephalic. ABDOMEN: Soft. Nondistended. Nontender. NEUROLOGIC: Alert and oriented. Speech difficult to understand at times. ASSESSMENT: 1. Dysphagia 2. Moderate protein calorie malnutrition PLAN: NPO. Patient scheduled for PEG tube insertion tomorrow with Dr. Estrada Nurse practitioner note has been reviewed by physician. Signing provider agrees with the documented findings, assessment, and plan of care. 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 History of Any Multi-Drug Resistant Organisms: None Reported Past Surgical History: Tonsillectomy Additional Past Surgical History / Comment(s): fatty tumors removed from breasts in 1971, colonoscopy, D&C Past Anesthesia/Blood Transfusion Reactions: No Reported Reaction Smoking Status: Current every day smoker - Past Family History Father Family Medical History: No Reported History Additional Family Medical History / Comment(s): Father never went to the doctor. He at the age of 73 yrs. Mother Family Medical History: Osteoarthritis (OA), Rheumatoid Arthritis (RA) Additional Family Medical History / Comment(s): Mother had severe arthritis. She lived to be 80 yrs old. Medications and Allergies Home Medications Medication Instructions Recorded Confirmed Type Cholecalciferol (Vitamin D3) 2,000 unit PO DAILY 08/26/18 04/29/19 History [Vitamin D3] LORazepam [Ativan] 0.5 mg PO HS 08/26/18 04/29/19 History Levothyroxine Sodium 100 mcg PO HS 08/26/18 04/29/19 History Dm/Acetaminophen/Doxylamine [Vicks 1 cap PO HS 04/29/19 04/29/19 History Nyquil Liquicaps] Allergies Allergy/AdvReac Type Severity Reaction Status Date / Time Tetracyclines Allergy Anaphylaxis Verified 04/29/19 10:02 Surgical - Exam Vital Signs Temp Pulse Resp BP Pulse Ox 98.2 F 114 H 18 118/76 91 L 04/29/19 09:45 04/29/19 09:45 04/29/19 09:45 04/29/19 09:45 04/29/19 09:45 Results - Labs 04/29/19 09:54 04/29/19 09:54 Abnormal Lab Results - Last 24 Hours (Table) 04/29/19 Range/Units Unknown Urine Appearance Cloudy H (Clear) Urine Protein 1+ H (Negative) Urine Blood Large H (Negative) Urine Bilirubin 1+ H (Negative) Urine RBC >182 H (0-5) /hpf
--- NOTE | 2019-04-30 19:06 | PN ---
PROGRESS NOTE CHIEF COMPLAINT: Weakness, dysphagia and dysarthria. HISTORY OF PRESENT ILLNESS: This lady is stable and comfortable. PHYSICAL EXAM: Chest is clear. Cardiac exam is normal. The abdomen is flat, soft and nontender. Neurologically, she is unchanged. IMPRESSION: 1. Amyotrophic lateral sclerosis. 2. Dysphagia. PLAN: Discussed PEG tube. She indicated to me that she did not want to have it done, but later in the day after talking with her daughter, she agreed to do so and this will be set up and then arrangements are being made for her discharge to long-term care and/or rehab. MMODL / IJN: [id number] /
[2019-04-30] MEDS: LEVOTHYROXINE IVP 100 MCG/5 ML VIAL IV SCH (21:08)
[2019-04-30] MEDS: LORazepam 2 MG/ML INJ IV PRN (21:08)
[2019-05-01] MEDS: SODIUM CHLORIDE 0.9% 1,000 ML IV SCH ×2 (05:21→17:32)
--- NOTE | 2019-05-01 11:24 | P.PN ---
<Vanessa Sarmiento - Last Filed: 05/01/19 11:22> Subjective Progress Note Date: 05/01/19 CHIEF COMPLAINT: PEG tube placement HISTORY OF PRESENT ILLNESS: Patient seen and examined this morning the bedside. Patients daughter present. Patient failed swallow screen yesterday. She denies abdominal pain. Patients daughter states they are going to see a physician at [facility] for further evaluation of her neurologic decline over the last few months. PHYSICAL EXAM: VITAL SIGNS: Reviewed. GENERAL: Well-developed in no acute distress. Thin. HEENT: No sclera icterus. Extraocular movements grossly intact. Moist buccal mucosa. Head is atraumatic, normocephalic. ABDOMEN: Soft. Nondistended. Nontender. NEUROLOGIC: Alert and oriented. Speech difficult to understand at times. ASSESSMENT: 1. Dysphagia 2. Moderate protein calorie malnutrition PLAN: NPO. Patient scheduled for PEG tube insertion today with Dr. Estrada. Patient and daughter agreeable to PEG tube insertion. Tube feedings may begin tomorrow. Nurse practitioner note has been reviewed by physician. Signing provider agrees with the documented findings, assessment, and plan of care. Objective - Vital Signs Vital signs: Vital Signs Temp 97.6 F 05/01/19 05:00 Pulse 87 05/01/19 05:00 Resp 18 05/01/19 05:00 BP 138/71 05/01/19 05:00 Pulse Ox 95 05/01/19 05:00 Intake & Output 04/30/19 05/01/19 05/01/19 18:59 06:59 18:59 Intake Total 1000 Balance 1000 Weight 45.359 kg Intake: Intake, IV Titration 1000 Amount Sodium Chloride 0.9% 1, 1000 000 ml @ 125 mls/hr IV . Q8H [facility] Rx#:[id number] Other: Voiding Method Bedpan Bedpan Diaper Diaper Incontinent Incontinent # Voids 1 1 - Labs CBC & Chem 7: 04/29/19 09:54 04/29/19 09:54 <Chava Estrada - Last Filed: 05/01/19 13:01> Subjective As above. We'll proceed with PEG tube at this time. I did search for the patient's daughter in preop but she apparently has left. Will discuss with family postoperatively. Objective - Vital Signs Vital signs: Vital Signs Temp 97.6 F 05/01/19 11:39 Pulse 92 05/01/19 11:39 Resp 16 05/01/19 11:39 BP 160/68 05/01/19 11:39 Pulse Ox 99 05/01/19 11:39 Intake & Output 04/30/19 05/01/19 05/01/19 18:59 06:59 18:59 Intake Total 1000 Balance 1000 Weight 45.359 kg 45.359 kg Intake: Intake, IV Titration 1000 Amount Sodium Chloride 0.9% 1, 1000 000 ml @ 125 mls/hr IV . Q8H [facility] Rx#:[id number] Other: Voiding Method Bedpan Bedpan Bedpan Diaper Diaper Diaper Incontinent Incontinent Incontinent # Voids 1 1 - Labs CBC & Chem 7: 04/29/19 09:54 04/29/19 09:54
[2019-05-01] MEDS ORDERED: PROPOFOL 10 MG/ML 20 ML VIAL IV ONE (12:56)
[2019-05-01] MEDS ORDERED: IV FLUID CONTINUATION 1,000 ML IV ONE (12:57)
--- NOTE | 2019-05-01 13:27 | P.PCN ---
Date of Procedure: 05/01/19 Procedure(s) Performed: PREOPERATIVE DIAGNOSIS: Malnutrition POSTOPERATIVE DIAGNOSIS: Same PROCEDURE: EGD with PEG tube placement SURGEON: Natalie EBL: Minimal ANESTHESIA: Sedation COMPLICATIONS: None OPERATIVE PROCEDURE: The patient was placed in the supine position on the endoscopy table. The patient was sedated per anesthesia that time. The Olympus gastroscope was inserted into the oropharynx and passed under direct visualization to the region of the duodenum. No obstruction was seen. The pylorus was widely patent. The stomach was carefully inspected. The stomach was fully insufflated with air. The abdominal wall was inspected. The light was seen shining through the abdominal wall in the left upper quadrant. This site was chosen for PEG tube placement. The area was prepped in the usual sterile fashion. This area was then localized with lidocaine. A small vertical incision was made using the scalpel. The Seldinger needle was advanced into the lumen of the stomach the wire was advanced. The wire was grasped with an endoscopic snare. The wire was pulled through the oropharynx. The catheter was then threaded over the guidewire and the guidewire and catheter were pulled anteriorly until the hub of the PEG tube catheter was seated against the anterior wall the stomach. The circular bolster was applied and tightened down. The endoscope was then readvanced into the stomach. There was no evidence of any bleeding and there was appropriate tightness on the bolster. The catheter was cut appropriately. The dual port feeding adapter was applied. DISPOSITION: Stable to recovery room
[2019-05-01] MEDS ORDERED: ACETAMINOPHEN IV (For NPO) 1,000 MG in EMPTY BAG 1 BAG IVPB PRN (14:16)
[2019-05-01] MEDS: MORPHINE SULFATE 2 MG/ML SYRINGE IVP PRN ×2 (14:41→17:24)
[2019-05-01] MEDS: LORazepam 2 MG/ML INJ IV PRN (19:22)
[2019-05-01] MEDS: LEVOTHYROXINE IVP 100 MCG/5 ML VIAL IV SCH (20:26)
[2019-05-01] MEDS ORDERED: FAMOTIDINE 20 MG/2 ML VIAL IV SCH (21:00)
--- NOTE | 2019-05-01 21:09 | PN ---
PROGRESS NOTE CHIEF COMPLAINT: Amyotrophic lateral sclerosis. HISTORY OF PRESENT ILLNESS: This lady is stable and awaits PEG tube placement. She is otherwise doing well. PHYSICAL EXAM: Chest is clear. Cardiac exam is normal. IMPRESSION: Amyotrophic lateral sclerosis. PLAN: PEG tube placement and then discharge planning. MMODL / BECKYN: [id number] /
[2019-05-02] MEDS: MORPHINE SULFATE 2 MG/ML SYRINGE IVP PRN ×2 (00:31→23:00)
[2019-05-02] MEDS: SODIUM CHLORIDE 0.9% 1,000 ML IV SCH ×3 (00:32→17:42)
[2019-05-02] MEDS: FAMOTIDINE 20 MG/2 ML VIAL IV SCH (09:08)
--- NOTE | 2019-05-02 11:44 | P.PN ---
Subjective Progress Note Date: 05/02/19 Principal diagnosis: Malnutrition Patient doing well today. Mildly tachycardic earlier although heart rate 90s now. Tolerating tube feeds at 20 per hour. Denies pain. Baseline neurologic status noted Objective - Vital Signs Vital signs: Vital Signs Temp 97.6 F 05/02/19 04:47 Pulse 116 H 05/02/19 04:47 Resp 20 05/02/19 04:47 BP 128/54 05/02/19 04:47 Pulse Ox 93 L 05/02/19 04:47 Intake & Output 05/01/19 05/02/19 05/02/19 18:59 06:59 18:59 Intake Total 300 1375 Balance 300 1375 Weight 45.359 kg 45.359 kg Intake: IV 300 Intake, IV Titration 1375 Amount Sodium Chloride 0.9% 1, 1375 000 ml @ 125 mls/hr IV . Q8H [facility] Rx#:[id number] Other: Voiding Method Bedpan Bedpan Bedpan Diaper Diaper Diaper Incontinent Incontinent Incontinent # Voids 3 1 1 - Exam Abdomen: Soft, mild tenderness around PEG site, nondistended - Labs CBC & Chem 7: 04/29/19 09:54 04/29/19 09:54 Assessment and Plan (1) Failure to thrive Narrative/Plan: Patient doing well. Continue gradually advancing tube feeds. We'll follow. Current Visit: Yes Status: Acute Code(s): FDL0521 - SNOMED Code(s): 14823321
[2019-05-02 12:04] LABS: ALT 18 U/L (9-52); AST 27 U/L (14-36); African American GFR (CKD) >90 (>60 ml/min/1.73 sqM); Albumin 2.9 g/dL (3.5-5.0); Alkaline Phosphatase 60 U/L (38-126); Anion Gap 12 mmol/L; Blood Urea Nitrogen 8 mg/dL (7-17); Calcium 8.8 mg/dL (8.4-10.2); Carbon Dioxide 20 mmol/L (22-30); Chloride 106 mmol/L (98-107); Glucose 68 mg/dL (74-99); Potassium 3.8 mmol/L (3.5-5.1); Sodium 138 mmol/L (137-145); Total Bilirubin 0.8 mg/dL (0.2-1.3); Total Protein 5.5 g/dL (6.3-8.2)
[2019-05-02 12:10] LABS: Basophils % (A) 0 %; Eosinophils # (A) 0.1 k/uL (0-0.7); Eosinophils % (A) 0 %; HCT 37.3 % (34.0-46.0); HGB 12.3 gm/dL (11.4-16.0); Lymphocytes # (A) 0.9 k/uL (1.0-4.8); Lymphocytes % (A) 7 %; MCHC 32.8 g/dL (31.0-37.0); MCV 97.5 fL (80.0-100.0); Mean Platelet Volume 8.2; Monocytes # (A) 0.7 k/uL (0-1.0); Monocytes % (A) 6 %; Neutrophils # (A) 9.9 k/uL (1.3-7.7); Neutrophils % (A) 84 %; Platelet Count 234 k/uL (150-450); RBC 3.83 m/uL (3.80-5.40); RDW 14.3 % (11.5-15.5); WBC 11.8 k/uL (3.8-10.6)
--- NOTE | 2019-05-02 13:19 | PN ---
PROGRESS NOTE DATE OF SERVICE: 05/02/2019. CHIEF COMPLAINT: ALS. HISTORY OF PRESENT ILLNESS: This lady is stable and there has been no interval change. A PEG tube has been placed. PHYSICAL EXAMINATION: Her color is good. Chest is clear. Cardiac exam is normal. There is no bleeding around the PEG tube. IMPRESSION: Amyotrophic lateral sclerosis with dysphagia. PLAN: Start to use PEG tube and begin working on a discharge plan. MMODL / IJN: [id number] /
[2019-05-02] MEDS: LORazepam 2 MG/ML INJ IV PRN ×2 (16:33→21:46)
[2019-05-02] MEDS: LEVOTHYROXINE IVP 100 MCG/5 ML VIAL IV SCH (20:05)
[2019-05-03] MEDS: MORPHINE SULFATE 2 MG/ML SYRINGE IVP PRN ×2 (04:21→21:10)
[2019-05-03] MEDS: SODIUM CHLORIDE 0.9% 1,000 ML IV SCH ×2 (04:23→09:59)
[2019-05-03 07:17] LABS: Glucose,Whole Blood 179 mg/dL (75-99)
--- NOTE | 2019-05-03 07:49 | XR ---
EXAMINATION TYPE: XR chest 1V portable DATE OF EXAM: 05/03/2019 HISTORY: shortness of breath. REFERENCE: Previous study dated 04/29/2019. FINDINGS: The lungs are overinflated. There are partially calcified breast implants present bilateral ly. There is worsening bibasilar infiltrates. There are small, bilateral effusions. The heart does not ap pear enlarged. IMPRESSION: 1. COPD. 2. WORSENING BIBASILAR INFILTRATES. 3. SMALL, BILATERAL EFFUSIONS.
[2019-05-03] MEDS: FAMOTIDINE 20 MG/2 ML VIAL IV SCH (08:02)
[2019-05-03 08:44] LABS: Glucose,Whole Blood 184 mg/dL (75-99)
--- NOTE | 2019-05-03 09:35 | P.PN ---
Subjective Progress Note Date: 05/03/19 Principal diagnosis: Malnutrition Patient transferred to the ICU this morning. She was found by the nursing staff to be tachypneic and tachycardic with some hypoxia. Patient apparently had lowered her bed to a flatter position while tube feeds were infusing. There was no visible emesis or aspiration. Patient doing better since transfer to the ICU. Currently on a nonrebreather with pulse ox 97%. There is switching to a nasal cannula. She is arousable. Denies pain. Objective - Vital Signs Vital signs: Vital Signs Temp 99.0 F 05/03/19 08:44 Pulse 110 H 05/03/19 09:00 Resp 14 05/03/19 09:00 BP 141/71 05/03/19 09:00 Pulse Ox 98 05/03/19 09:00 Intake & Output 05/02/19 05/03/19 05/03/19 18:59 06:59 18:59 Intake Total 80 280 125 Output Total 300 Balance 80 280 -175 Weight 45.359 kg 44 kg Intake: IV 125 Sodium Chloride 0.9% 1, 125 000 ml @ 125 mls/hr IV . Q8H [facility] Rx#:[id number] Tube Feeding 80 280 Output: Urine 300 Other: Voiding Method Bedpan Bedpan Diaper Diaper Incontinent Incontinent # Voids 1 - Exam Abdomen: Soft, nondistended, minimal tenderness around PEG tube site, PEG tube intact - Labs CBC & Chem 7: 05/02/19 11:41 05/02/19 11:41 Labs: Abnormal Lab Results - Last 24 Hours (Table) 05/02/19 05/02/19 05/03/19 Range/Units 11:41 11:41 07:15 WBC 11.8 H (3.8-10.6) k/uL Neutrophils # 9.9 H (1.3-7.7) k/uL Lymphocytes # 0.9 L (1.0-4.8) k/uL Carbon Dioxide 20 L (22-30) mmol/L Glucose 68 L (74-99) mg/dL POC Glucose (mg/dL) 179 H (75-99) mg/dL Total Protein 5.5 L (6.3-8.2) g/dL Albumin 2.9 L (3.5-5.0) g/dL 05/03/19 Range/Units 08:42 WBC (3.8-10.6) k/uL Neutrophils # (1.3-7.7) k/uL Lymphocytes # (1.0-4.8) k/uL Carbon Dioxide (22-30) mmol/L Glucose (74-99) mg/dL POC Glucose (mg/dL) 184 H (75-99) mg/dL Total Protein (6.3-8.2) g/dL Albumin (3.5-5.0) g/dL Assessment and Plan (1) Failure to thrive Narrative/Plan: Patient with respiratory failure. Possible aspiration. Await pulmonary evaluation. Continue tube feeds at 20 mL per hour. Keep head of bed elevated. Current Visit: Yes Status: Acute Code(s): HYI8890 - SNOMED Code(s): 23761722
[2019-05-03 10:02] LABS: Basophils % (A) 0 %; Eosinophils % (A) 0 %; HCT 36.4 % (34.0-46.0); HGB 11.8 gm/dL (11.4-16.0); Lymphocytes # (A) 0.8 k/uL (1.0-4.8); Lymphocytes % (A) 6 %; MCH 31.2 pg (25.0-35.0); MCHC 32.5 g/dL (31.0-37.0); MCV 95.8 fL (80.0-100.0); Mean Platelet Volume 7.8; Monocytes % (A) 8 %; Neutrophils # (A) 10.3 k/uL (1.3-7.7); Neutrophils % (A) 83 %; Platelet Count 224 k/uL (150-450); WBC 12.3 k/uL (3.8-10.6)
[2019-05-03 10:09] LABS: ALT 21 U/L (9-52); AST 42 U/L (14-36); African American GFR (CKD) >90 (>60 ml/min/1.73 sqM); Albumin 2.9 g/dL (3.5-5.0); Alkaline Phosphatase 62 U/L (38-126); Anion Gap 5 mmol/L; Blood Urea Nitrogen 8 mg/dL (7-17); Calcium 8.5 mg/dL (8.4-10.2); Carbon Dioxide 27 mmol/L (22-30); Chloride 108 mmol/L (98-107); Glucose 192 mg/dL (74-99); Potassium 3.5 mmol/L (3.5-5.1); Sodium 140 mmol/L (137-145); Total Bilirubin 0.5 mg/dL (0.2-1.3); Total Protein 5.6 g/dL (6.3-8.2)
[2019-05-03 10:21] LABS: Glucose,Whole Blood 190 mg/dL (75-99)
[2019-05-03 10:36] LABS: Amorphous Sediment,Urine Few /hpf; Appearance,Urine Cloudy (Clear); Bacteria,Urine Rare /hpf; Bilirubin,Urine Negative (Negative); Blood,Urine Trace (Negative); Color,Urine Yellow; Glucose,Urine (UA) Negative (Negative); Ketones,Urine 2+ (Negative); Leukocyte Esterase,Urine Negative (Negative); Mucus,Urine Rare /hpf; Nitrite,Urine Negative (Negative); Protein,Urine 1+ (Negative); RBC,Urine 3 /hpf (0-5); Specific Gravity,Urine 1.022 (1.001-1.035); Squamous Epithelial Cell,Urine 2 /hpf (0-4); WBC,Urine 1 /hpf (0-5)
[2019-05-03 10:38] LABS: ABG Base Excess 1.8 mmol/L; ABG HCO3 27 mmol/L (21-25); ABG Oxygen Saturation 99.4 % (94-97); ABG PCO2 44 mmHg (35-45); ABG PH 7.39 (7.35-7.45); ABG PO2 172 mmHg (83-108); ABG TCO2 28 mmol/L (19-24); Allen Test Performed? Yes
[2019-05-03] MEDS ORDERED: MULTIVITAMINS, THERA 1 EACH TAB PO SCH (10:45)
--- NOTE | 2019-05-03 10:50 | P.CNPUL ---
History of Present Illness Consult date: 05/03/19 Reason for consult: pneumonia History of present illness: A 74-year-old female patient who was transferred to the intensive care unit after the patient became short of breath. The patient had effective insertion and she was started on enteral feeding for nutritional support. Apparently she was putting her back down flat antral suspected and the patient could've aspirated her tube feeds. Currently the patient 100% nonrebreather facemask pH equal to the ICU. She has a very weak cough. Her blood pressure with a pH of 7.39 with a pCO2 of 43 and pO2 172. She is lethargic. She is sleepy. She is extremely weak. Her chest x-ray showing worsening bibasilar pulmonary infiltrates and small effusions. Contacted the family and the daughter tells the that the patient as a DNR/DNI CODE STATUS. Upon review of the records, this patient has been having progressive worsening in neurologic functions. Based on the neuro records, the patient was seen by Dr. Gonzales who noted intact mental status, normal speech and 5-/5 strength in the proximal BLE. She did have CT L- spine that showed disc bulges with neuroforaminal stenosis. Since the above hospitalization, patient has gone on to see numerous neurologists who did a plethora of neuro testing including MRIs and blood tests. There were talks about CSF analysis and muscle biopsy. Patient was hospitalized because of progressive weakness, recurrent falls, difficulty with swallowing with unintentional weight loss. She has difficulty even swallowing water that can cause her to choke. She did have an EMG/NCS, but not by neuromuscular subspecialist. Neurologically, patient denies decreased level or loss of consciousness, cognitive changes, headache, changes in vision, diplopia, amaurosis, facial numbness or droop, ptosis, vertigo, aphasia, other focal numbness/weakness not mentioned above, tremors or bowel/bladder incontinence. He is on these ongoing problems, the patient had a PEG tube insertion. 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 She is nonambulatory. Review of Systems ROS unobtainable: due to mental status Constitutional: Reports lethargy, Reports poor appetite, Reports weakness Eyes: right blurred vision, right decreased vision, bilateral bulging eye Ears: deny: decreased hearing, ear discharge, earache, tinnitus Ears, nose, mouth and throat: Reports dysphagia Breasts: absent: as per HPI, change in shape, gynecomastia, masses, nipple discharge, pain, skin changes, swelling Cardiovascular: Reports decreased exercise tolerance, Reports dyspnea on exertion, Reports shortness of breath Respiratory: Reports cough, Reports dyspnea Gastrointestinal: Reports as per HPI Genitourinary: Denies dysuria, Denies hematuria Musculoskeletal: Reports atrophy, Reports gait dysfunction, Reports limitation of motion, Reports muscle weakness Musculoskeletal: absent: ankle pain, ankle stiffness, ankle swelling, as per HPI, elbow pain, elbow stiffness, elbow swelling, foot pain, foot stiffness, foot swelling, hand pain, hand stiffness, hand swelling, hip pain, hip stiffness, hip swelling, knee pain, knee stiffness, knee swelling, shoulder pain, shoulder stiffness, shoulder swelling, wrist pain, wrist stiffness, wrist swelling Integumentary: Denies pruritus, Denies rash Neurological: Reports ataxia, Reports balance difficulties, Reports gait dysfunction, Reports lack of coordination, Reports motor disturbance, Reports paralysis, Reports weakness Psychiatric: Reports as per HPI Endocrine: Reports as per HPI, Reports fatigue Hematologic/Lymphatic: Reports as per HPI Allergic/Immunologic: Reports as per HPI Past Medical History Past Medical History: CVA/TIA, Hyperlipidemia, Osteoarthritis (OA), Thyroid Disorder Additional Past Medical History / Comment(s): Pt has had hx of 2 CVAs-first CVA without residual-2nd CVA with R eye vision changes and R sided weakness both arm/leg with eventual resolve, August 2018 pt began to experience weakness/ambulatory difficulty-has had numerous tests/work ups and cause not found-she has started to also have problems with coughing/swallowing/speaking/developed tremors and now needs assistance with all her ADLS-daughter states that now physician's are thinking possibly Jessica Gehrigs, recent R shoulder pain, recent fall with rib fractures, arthritis bilateral hands/shoulders/knees, cataracts, headaches, hypothyroid, sinus problems. History of Any Multi-Drug Resistant Organisms: None Reported Past Surgical History: Tonsillectomy Additional Past Surgical History / Comment(s): fatty tumors removed from breasts in 1971, colonoscopy, D&C Past Anesthesia/Blood Transfusion Reactions: No Reported Reaction Smoking Status: Current every day smoker - Past Family History Father Family Medical History: No Reported History Additional Family Medical History / Comment(s): Father never went to the doctor. He at the age of 73 yrs. Mother Family Medical History: Osteoarthritis (OA), Rheumatoid Arthritis (RA) Additional Family Medical History / Comment(s): Mother had severe arthritis. She lived to be 80 yrs old. Medications and Allergies Home Medications Medication Instructions Recorded Confirmed Type Cholecalciferol (Vitamin D3) 2,000 unit PO DAILY 08/26/18 04/29/19 History [Vitamin D3] LORazepam [Ativan] 0.5 mg PO HS 08/26/18 04/29/19 History Levothyroxine Sodium 100 mcg PO HS 08/26/18 04/29/19 History Dm/Acetaminophen/Doxylamine [Vicks 1 cap PO HS 04/29/19 04/29/19 History Nyquil Liquicaps] Allergies Allergy/AdvReac Type Severity Reaction Status Date / Time Tetracyclines Allergy Anaphylaxis Verified 04/29/19 10:02 Physical Exam Vitals: Vital Signs Temp Pulse Pulse Resp BP BP Pulse Ox 05/03/19 10:00 117 H 28 H 129/69 98 05/03/19 09:45 112 H 17 135/78 97 05/03/19 09:30 112 H 21 149/74 87 L 05/03/19 09:15 122 H 27 H 136/71 97 05/03/19 09:00 110 H 14 141/71 98 05/03/19 08:50 115 H 29 H 141/71 98 05/03/19 08:44 99.0 F 124 H 28 H 141/97 98 05/03/19 07:37 125 H 36 H 168/78 05/03/19 07:29 97.1 F L 05/03/19 07:20 98 05/03/19 07:19 67 24 180/70 96 05/03/19 07:11 97.7 F 118 H 40 H 181/71 79 L 05/03/19 07:00 118 H 44 H 181/71 70 L 05/02/19 19:57 97.3 F L 100 18 150/67 94 L 05/02/19 11:25 96 18 112/57 96 Intake and Output 05/02/19 05/03/19 05/03/19 22:59 06:59 14:59 Intake Total 40 240 250 Output Total 380 Balance 40 240 -130 Intake: IV 250 Sodium Chloride 0.9% 1, 250 000 ml @ 125 mls/hr IV . Q8H [facility] Rx#:[id number] Tube Feeding 40 240 Output: Urine 380 Other: Voiding Method Bedpan Diaper Incontinent # Voids 1 Weight 44 kg Gen. appearance the patient is cachectic thin emaciated malnourished and mild degree of respiratory distress while being on 100% nonrebreather facemask. Head exam was generally normal. There was no scleral icterus or corneal arcus. Mucous membranes were moist. Neck was supple and without jugular venous distension, thyromegaly, or carotid bruits. Carotids were easily palpable bilaterally. There was no adenopathy. Lungs sounds revealed diminished breath on the lung bases worse on the right and there is also bibasilar crackles Cardiac exam revealed the PMI to be normally situated and sized. The rhythm was regular and no extrasystoles were noted during several minutes of auscultation. The first and second heart sounds were normal and physiologic splitting of the second heart sound was noted. There were no murmurs, rubs, clicks, or gallops. Abdominal exam revealed normal bowel sounds. The abdomen was soft, non-tender, and without masses, organomegaly, or appreciable enlargement of the abdominal aorta. Active site is dry clean and intact. Examination of the skin revealed no evidence of significant rashes, suspicious appearing nevi or other concerning lesions. Examination of the extremities revealed easily palpable radial, femoral and pedal pulses. There was no cyanosis, clubbing or edema. Neurologically, the patient has no nystagmus, no facial weakness cysts. Speech is dysarthric and difficult to understand. Tongue is in midline. No tongue fasciculation. Generalized motor weakness and diminished bulk of the muscle. Sensory cannot be assessed at this point in time. Reflexes are +3 over 4 throughout and toes are upgoing without any clonus at the Achilles. Gait was not assessed. Results - Laboratory Findings CBC and BMP: 05/03/19 09:41 05/03/19 09:41 PT/INR, D-dimer PT 10.2 sec (9.0-12.0) 04/29/19 09:54 INR 0.9 (<1.2) 04/29/19 09:54 Abnormal lab findings: Abnormal Labs 04/29/19 04/29/19 04/29/19 09:54 09:54 09:54 WBC 16.5 H Neutrophils # 14.2 H Lymphocytes # Chloride Carbon Dioxide 31 H Glucose 126 H POC Glucose (mg/dL) AST Creatine Kinase 28 L Total Protein Albumin TSH 0.020 L Urine Appearance Urine Protein Urine Ketones Urine Blood Urine Bilirubin Urine RBC Amorphous Sediment Urine Bacteria Urine Mucus 04/29/19 05/02/19 05/02/19 Unknown 11:41 11:41 WBC 11.8 H Neutrophils # 9.9 H Lymphocytes # 0.9 L Chloride Carbon Dioxide 20 L Glucose 68 L POC Glucose (mg/dL) AST Creatine Kinase Total Protein 5.5 L Albumin 2.9 L TSH Urine Appearance Cloudy H Urine Protein 1+ H Urine Ketones Urine Blood Large H Urine Bilirubin 1+ H Urine RBC >182 H Amorphous Sediment Urine Bacteria Urine Mucus 05/03/19 05/03/19 05/03/19 07:15 08:42 09:11 WBC Neutrophils # Lymphocytes # Chloride Carbon Dioxide Glucose POC Glucose (mg/dL) 179 H 184 H AST Creatine Kinase Total Protein Albumin TSH Urine Appearance Cloudy H Urine Protein 1+ H Urine Ketones 2+ H Urine Blood Trace H Urine Bilirubin Urine RBC Amorphous Sediment Few H Urine Bacteria Rare H Urine Mucus Rare H 05/03/19 05/03/19 05/03/19 09:41 09:41 10:19 WBC 12.3 H Neutrophils # 10.3 H Lymphocytes # 0.8 L Chloride 108 H Carbon Dioxide Glucose 192 H POC Glucose (mg/dL) 190 H AST 42 H Creatine Kinase Total Protein 5.6 L Albumin 2.9 L TSH Urine Appearance Urine Protein Urine Ketones Urine Blood Urine Bilirubin Urine RBC Amorphous Sediment Urine Bacteria Urine Mucus - Diagnostic Findings Chest x-ray: image reviewed Assessment and Plan Plan: 1 acute hypoxic respiratory failure secondary to aspiration. Rule out develo pment of an aspiration pneumonia 2 shortness of breath secondary to above 3 dysphagia post PEG tube insertion. The patient is also profoundly malnourished and tachycardia was inserted for enteral feeding and nutritional support. 4 progressive muscle weakness/atrophy along with ataxia and bulbar dysfunction with fasciculation and hyperreflexia. Consider multisystem atrophy. Neurology is on the case. 5 history of CVA 6 hypothyroidism 7 hyperlipidemia 8 chronic degenerative arthritis 9 history of falls with rib fractures Plan Keep the patient 100% on a beta facemask. Obtain a blood gas to assess acid base status and oxygenation. Keep the tube feeds on hold for now. Over this patient with IV Zosyn as a broad-spectrum antibiotic coverage covering for gram- negative and anaerobes regarding aspiration. Repeat chest x-ray with the next 24 hours. She has a DO NOT INTUBATE CODE STATUS. She has a weak cough. She is a high risk of developing worsening hypoxemia and progressive respiratory failure baseline above-mentioned comorbidities. We'll continue to follow. We'll also add DuoNeb nebulized treatments around the clock. Keep on 100% on facemasks for now. Prognosis poor.
[2019-05-03] MEDS: HEPARIN SODIUM,PORCINE 5,000 UNIT/ML 1 ML VIAL SQ SCH ×2 (10:59→23:59)
[2019-05-03] MEDS ORDERED: 1: MVI, ADULT NO.4 WITH VIT K 10 ML, THIAMINE 100 MG, FOLIC ACID 1 MG in SODIUM CHLORIDE IV SCH ×4 (11:00)
[2019-05-03] MEDS ORDERED: INSULIN ASPART (NovoLOG) 100 UNIT/ML VIAL SQ SCH (11:00)
[2019-05-03] MEDS ORDERED: SODIUM CHLORIDE 0.9% 1,000 ML IV SCH (11:00)
[2019-05-03] MEDS: PIPERACILLIN-TAZOBACTAM 3.375 GM in SODIUM CHLORIDE 0.9% 100 ML IVPB SCH ×2 (11:00→18:41)
[2019-05-03] MEDS: IPRATROPIUM-ALBUTEROL 3 ML NEB INHALATION SCH ×3 (11:33→19:14)
[2019-05-03 11:58] LABS: Magnesium 1.6 mg/dL (1.6-2.3); Phosphorus 2.5 mg/dL (2.5-4.5)
[2019-05-03] MEDS: SODIUM CHLORIDE 0.9% 1,000 ML with MVI, ADULT NO.4 WITH VIT K 10 ML, THIAMINE 100 MG, F... IV SCH ×4 (12:31)
[2019-05-03 18:00] LABS: Glucose,Whole Blood 111 mg/dL (75-99)
[2019-05-03] MEDS: INSULIN ASPART (NovoLOG) 100 UNIT/ML VIAL SQ SCH ×2 (18:20→23:59)
[2019-05-03] MEDS: LEVOTHYROXINE IVP 100 MCG/5 ML VIAL IV SCH (21:09)
[2019-05-03 23:59] LABS: Glucose,Whole Blood 107 mg/dL (75-99)
[2019-05-04] MEDS: PIPERACILLIN-TAZOBACTAM 3.375 GM in SODIUM CHLORIDE 0.9% 100 ML IVPB SCH ×3 (04:03→19:48)
[2019-05-04 05:05] LABS: Basophils # (A) 0.1 k/uL (0-0.2); Basophils % (A) 1 %; Eosinophils # (A) 0.1 k/uL (0-0.7); Eosinophils % (A) 1 %; HCT 35.5 % (34.0-46.0); HGB 11.5 gm/dL (11.4-16.0); Lymphocytes % (A) 14 %; MCHC 32.5 g/dL (31.0-37.0); MCV 98.3 fL (80.0-100.0); Mean Platelet Volume 8.8; Monocytes # (A) 0.5 k/uL (0-1.0); Monocytes % (A) 7 %; Neutrophils # (A) 5.2 k/uL (1.3-7.7); Neutrophils % (A) 74 %; Platelet Count 204 k/uL (150-450); RBC 3.61 m/uL (3.80-5.40); RDW 13.8 % (11.5-15.5)
[2019-05-04 05:15] LABS: African American GFR (CKD) >90 (>60 ml/min/1.73 sqM); Anion Gap 6 mmol/L; Blood Urea Nitrogen 10 mg/dL (7-17); Calcium 8.7 mg/dL (8.4-10.2); Carbon Dioxide 24 mmol/L (22-30); Chloride 110 mmol/L (98-107); Glucose 108 mg/dL (74-99); Magnesium 1.7 mg/dL (1.6-2.3); Phosphorus 3.2 mg/dL (2.5-4.5); Potassium 3.3 mmol/L (3.5-5.1); Sodium 140 mmol/L (137-145)
[2019-05-04] MEDS ORDERED: Potassium Replacement Protocol 1 EACH MISC MISCELLANE PRN (06:08)
[2019-05-04] MEDS ORDERED: Magnesium Replacement Protocol 1 EACH MISC MISCELLANE PRN (06:09)
[2019-05-04] MEDS: IPRATROPIUM-ALBUTEROL 3 ML NEB INHALATION SCH ×4 (07:37→20:40)
[2019-05-04] MEDS: INSULIN ASPART (NovoLOG) 100 UNIT/ML VIAL SQ SCH ×4 (07:59→23:56)
[2019-05-04] MEDS: MAGNESIUM SULFATE-D5W PMX 1 GM in DEXTROSE/WATER 1 100ML.BAG IVPB SCH ×2 (08:15→09:43)
[2019-05-04] MEDS: HEPARIN SODIUM,PORCINE 5,000 UNIT/ML 1 ML VIAL SQ SCH ×3 (08:15→23:59)
[2019-05-04] MEDS: FAMOTIDINE 20 MG/2 ML VIAL IV SCH (08:15)
[2019-05-04] MEDS: POTASSIUM CHLORIDE 10 MEQ in WATER FOR INJECTION 1 100ML.BAG IVPB SCH ×4 (08:15→13:29)
[2019-05-04] MEDS: SODIUM CHLORIDE 0.9% 1,000 ML with MVI, ADULT NO.4 WITH VIT K 10 ML, THIAMINE 100 MG, F... IV SCH ×4 (11:47)
[2019-05-04 12:07] LABS: Glucose,Whole Blood 123 mg/dL (75-99)
[2019-05-04] MEDS: MORPHINE SULFATE 2 MG/ML SYRINGE IVP PRN (12:18)
--- NOTE | 2019-05-04 13:17 | P.PN ---
Subjective Progress Note Date: 05/04/19 CHIEF COMPLAINT: PEG tube placement HISTORY OF PRESENT ILLNESS: Patient seen and examined this morning the bedside. She denies abdominal pain. Denies nausea or vomiting. She denies shortness of breath. Tube feeding infusing at 10cc/hr. WBC 7.0. Hemoglobin 11.5. Potassium 3.3. Magnesium 1.7. PHYSICAL EXAM: VITAL SIGNS: Reviewed GENERAL: Well-developed in no acute distress. Thin. HEENT: No sclera icterus. Extraocular movements grossly intact. Moist buccal mucosa. Head is atraumatic, normocephalic. Hears conversational speech. No nasal drainage. NECK: Supple without lymphadenopathy. CHEST: Non-labored respirations and equal bilateral excursions. CARDIOVASCULAR: Regular rate with regular rhythm. Palpable 2+ radial pulses. ABDOMEN: Soft. Nondistended. Nontender. PEG tube site clean dry and intact without drainage or signs of infection. MUSCULOSKELETAL: No clubbing, cyanosis or edema. NEUROLOGIC: No focal or lateralizing signs. Cranial nerves II through XII grossly intact. Speech difficult to understand at times. PSYCH: Appropriate affect. Alert and oriented. SKIN: Well perfused. Good skin turgor. ASSESSMENT: 1. Dysphagia 2. Moderate protein calorie malnutrition 3. Status post PEG tube insertion 4. Hypokalemia 5. Hypomagnesemia 6. Acute hypoxic respiratory failure, possible aspiration pneumonia PLAN: Continue tube feedings. Advance as tolerated. Dietitian to make further recommendations regarding tube feeding regimen. Patients head of bed to be up at all times while receiving tube feedings. Continue aspiration precautions. Pulmonary following. Nurse practitioner note has been reviewed by physician. Signing provider agrees with the documented findings, assessment, and plan of care. Objective - Vital Signs Vital signs: Vital Signs Temp 97.4 F L 05/04/19 12:00 Pulse 82 05/04/19 13:00 Resp 18 05/04/19 13:00 BP 162/99 05/04/19 13:00 Pulse Ox 94 L 05/04/19 13:00 Intake & Output 05/03/19 05/04/19 05/04/19 18:59 06:59 18:59 Intake Total 975 670 870 Output Total 517 217 200 Balance 458 453 670 Weight 44 kg 47.5 kg 47.5 kg Intake: IV 795 480 760 Magnesium Sulfate-D5w Pmx 200 1 gm In Dextrose/Water 1 100ml.bag @ 100 mls/hr IVPB Q1H [facility] Rx#: [id number] Mvi, Adult No.4 with Vit 80 K 10 ml Thiamine 100 mg Folic Acid 1 mg In Sodium Chloride 0.9% 1,000 ml @ 125 mls/hr IV .BY DURATION [facility] Rx#: [id number] Piperacillin-Tazobactam 3 200 100 .375 gm In Sodium Chloride 0.9% 100 ml @ 25 mls/hr IVPB Q8H [facility] Rx#: [id number] Potassium Chloride 10 meq 300 In Water For Injection 1 100ml.bag @ 100 mls/hr IVPB Q1HR [facility] Rx#: [id number] Sodium Chloride 0.9% 1, 375 000 ml @ 125 mls/hr IV . Q8H [facility] Rx#:[id number] Sodium Chloride 0.9% 1, 100 240 40 000 ml @ 20 mls/hr IV . Q24H [facility] Rx#:[id number] Sodium Chloride 0.9% 1, 40 240 120 000 ml @ 20 mls/hr IV . Q24H [facility] with Mvi, Adult No.4 with Vit K 10 ml with Thiamine 100 mg with Folic Acid 1 mg Rx#: [id number] Tube Feeding 150 100 50 Other 30 90 60 Output: Urine 517 217 200 Other: Voiding Method Indwelling Catheter Indwelling Catheter Indwelling Catheter - Labs CBC & Chem 7: 05/04/19 04:03 05/04/19 04:03 Labs: Abnormal Lab Results - Last 24 Hours (Table) 05/03/19 05/03/19 05/04/19 Range/Units 17:58 23:57 04:03 RBC 3.61 L (3.80-5.40) m/uL Potassium (3.5-5.1) mmol/L Chloride (98-107) mmol/L Glucose (74-99) mg/dL POC Glucose (mg/dL) 111 H 107 H (75-99) mg/dL 05/04/19 05/04/19 Range/Units 04:03 12:05 RBC (3.80-5.40) m/uL Potassium 3.3 L (3.5-5.1) mmol/L Chloride 110 H (98-107) mmol/L Glucose 108 H (74-99) mg/dL POC Glucose (mg/dL) 123 H (75-99) mg/dL Assessment and Plan (1) Dehydration Current Visit: Yes Status: Acute Code(s): E86.0 - DEHYDRATION SNOMED Code(s): 11772784 (2) Dysphasia Current Visit: Yes Status: Acute Code(s): R47.02 - DYSPHASIA SNOMED Code(s): 97323410 (3) Failure to thrive Current Visit: Yes Status: Acute Code(s): AKW0887 - SNOMED Code(s): 64578591
--- NOTE | 2019-05-04 13:58 | P.PN ---
Subjective Progress Note Date: 05/04/19 Principal diagnosis: Acute aspiration pneumonia A 74-year-old female patient who was transferred to the intensive care unit after the patient became short of breath. The patient had effective insertion and she was started on enteral feeding for nutritional support. Apparently she was putting her back down flat antral suspected and the patient could've aspirated her tube feeds. Currently the patient 100% nonrebreather facemask pH equal to the ICU. She has a very weak cough. Her blood pressure with a pH of 7.39 with a pCO2 of 43 and pO2 172. She is lethargic. She is sleepy. She is extremely weak. Her chest x-ray showing worsening bibasilar pulmonary infiltrates and small effusions. Contacted the family and the daughter tells the that the patient as a DNR/DNI CODE STATUS. Upon review of the records, this patient has been having progressive worsening in neurologic functions. Based on the neuro records, the patient was seen by Dr. Gonzales who noted intact mental status, normal speech and 5-/5 strength in the proximal BLE. She did have CT L- spine that showed disc bulges with neuroforaminal stenosis. Since the above hospitalization, patient has gone on to see numerous neurologists who did a plethora of neuro testing including MRIs and blood tests. There were talks about CSF analysis and muscle biopsy. Patient was hospitalized because of progressive weakness, recurrent falls, difficulty with swallowing with unintentional weight loss. She has difficulty even swallowing water that can cause her to choke. She did have an EMG/NCS, but not by neuromuscular subspecialist. Neurologically, patient denies decreased level or loss of consciousness, cognitive changes, headache, changes in vision, diplopia, amaurosis, facial numbness or droop, ptosis, vertigo, aphasia, other focal numbness/weakness not mentioned above, tremors or bowel/bladder incontinence. He is on these ongoing problems, the patient had a PEG tube insertion. 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 She is nonambulatory. Reevaluated today on 05/04/2019, patient looks quite frail, cachectic, in no form of respiratory distress, she is on tube feeding at 10 mL/h, patient has difficulty with speech and she had difficulty with swallowing. She clearly has moderate protein calorie malnutrition. Being followed by multiple consultants including neurology. Obviously the patient has been experiencing progressive m uscle atrophy weakness and ataxia bulbar dysfunction and I have a feeling that the patient may have underlying motor neuron disease, and clearly the prognosis is extremely poor. Labs from today were all reviewed. Potassium is a bit low at 3.3. Objective - Vital Signs Vital signs: Vital Signs Temp 97.4 F L 05/04/19 12:00 Pulse 82 05/04/19 13:00 Resp 18 05/04/19 13:00 BP 162/99 05/04/19 13:00 Pulse Ox 94 L 05/04/19 13:00 Intake & Output 05/03/19 05/04/19 05/04/19 18:59 06:59 18:59 Intake Total 975 670 870 Output Total 517 217 200 Balance 458 453 670 Weight 44 kg 47.5 kg 47.5 kg Intake: IV 795 480 760 Magnesium Sulfate-D5w Pmx 200 1 gm In Dextrose/Water 1 100ml.bag @ 100 mls/hr IVPB Q1H [facility] Rx#: [id number] Mvi, Adult No.4 with Vit 80 K 10 ml Thiamine 100 mg Folic Acid 1 mg In Sodium Chloride 0.9% 1,000 ml @ 125 mls/hr IV .BY DURATION [facility] Rx#: [id number] Piperacillin-Tazobactam 3 200 100 .375 gm In Sodium Chloride 0.9% 100 ml @ 25 mls/hr IVPB Q8H [facility] Rx#: [id number] Potassium Chloride 10 meq 300 In Water For Injection 1 100ml.bag @ 100 mls/hr IVPB Q1HR [facility] Rx#: [id number] Sodium Chloride 0.9% 1, 375 000 ml @ 125 mls/hr IV . Q8H [facility] Rx#:[id number] Sodium Chloride 0.9% 1, 100 240 40 000 ml @ 20 mls/hr IV . Q24H [facility] Rx#:[id number] Sodium Chloride 0.9% 1, 40 240 120 000 ml @ 20 mls/hr IV . Q24H [facility] with Mvi, Adult No.4 with Vit K 10 ml with Thiamine 100 mg with Folic Acid 1 mg Rx#: [id number] Tube Feeding 150 100 50 Other 30 90 60 Output: Urine 517 217 200 Other: Voiding Method Indwelling Catheter Indwelling Catheter Indwelling Catheter - Exam Physical Exam: Revealed a thin cachectic and emaciated malnourished female. Head: Atraumatic, normocephalic. HEENT:[Neck is supple.] [No neck masses.] [No thyromegaly.] [No JVD.] PERRLA, EOMI, neck tightness. Chest: [Symmetrical chest expansion, crackles at the bases especially at the right base. No rhonchi no wheezes..] Cardiac Exam: [Normal S1 and S2, no S3 gallop, no murmur.] Abdomen: [Soft, nontender, no megaly, no rebound, no guarding, normal bowel sounds.] Extremities: [No clubbing, no edema, no cyanosis.] Significant muscle wasting and atrophy is noted. Neurological Exam: Patient is dysarthric, difficult to understand, no tongue fasciculation is noted. Generalized motor weakness is noted and generalized muscle atrophy is noted. Sensory was not assessed. Lymphatics: No lymphadenopathy. Skin: No rashes. - Labs CBC & Chem 7: 05/04/19 04:03 05/04/19 04:03 Labs: Abnormal Lab Results - Last 24 Hours (Table) 05/03/19 05/03/19 05/04/19 Range/Units 17:58 23:57 04:03 RBC 3.61 L (3.80-5.40) m/uL Potassium (3.5-5.1) mmol/L Chloride (98-107) mmol/L Glucose (74-99) mg/dL POC Glucose (mg/dL) 111 H 107 H (75-99) mg/dL 05/04/19 05/04/19 Range/Units 04:03 12:05 RBC (3.80-5.40) m/uL Potassium 3.3 L (3.5-5.1) mmol/L Chloride 110 H (98-107) mmol/L Glucose 108 H (74-99) mg/dL POC Glucose (mg/dL) 123 H (75-99) mg/dL Assessment and Plan Assessment: Impression: 1: Acute aspiration pneumonia with acute hypoxic respiratory failure 2 dysphagia, 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 3 progressive muscle weakness/atrophy along with ataxia and bulbar dysfunction with fasciculation and hyperreflexia. Consider multisystem atrophy. Neurology is on the case. 4 history of CVA 5 hypothyroidism 6 hyperlipidemia 7 chronic degenerative arthritis 8 history of falls with rib fractures Plan: Continue present supportive care measures, continue PEG tube feeding, prognosis is extremely poor and guarded, agree with DO NOT RESUSCITATE CODE STATUS. We'll continue to follow. Time with Patient: Less than 30
--- NOTE | 2019-05-04 17:02 | PN ---
PROGRESS NOTE CHIEF COMPLAINT: Respiratory failure after probable aspiration. HISTORY OF PRESENT ILLNESS: This lady is doing well. She is waking up, becoming much more alert. PHYSICAL EXAMINATION: Chest is clear. Cardiac exam is normal. Abdomen is soft. IMPRESSION: 1. Probable aspiration. 2. Amyotrophic lateral sclerosis. PLAN: Slowly resume PEG tube feedings and probably move out of the unit today. MMODL / IJN: [id number] /
[2019-05-04 17:58] LABS: Glucose,Whole Blood 117 mg/dL (75-99)
[2019-05-04] MEDS: LEVOTHYROXINE IVP 100 MCG/5 ML VIAL IV SCH (20:21)
[2019-05-04 23:46] LABS: Glucose,Whole Blood 98 mg/dL (75-99)
[2019-05-05] MEDS: LORazepam 2 MG/ML INJ IV PRN ×3 (00:14→22:44)
[2019-05-05] MEDS ORDERED: LISINOPRIL 20 MG TAB PO STA (01:15)
[2019-05-05] MEDS: PIPERACILLIN-TAZOBACTAM 3.375 GM in SODIUM CHLORIDE 0.9% 100 ML IVPB SCH ×3 (04:07→18:25)
[2019-05-05 05:55] LABS: Basophils % (A) 0 %; Eosinophils # (A) 0.2 k/uL (0-0.7); Eosinophils % (A) 3 %; HCT 34.8 % (34.0-46.0); HGB 11.2 gm/dL (11.4-16.0); Lymphocytes # (A) 0.8 k/uL (1.0-4.8); Lymphocytes % (A) 11 %; MCH 31.5 pg (25.0-35.0); MCHC 32.3 g/dL (31.0-37.0); MCV 97.5 fL (80.0-100.0); Monocytes # (A) 0.4 k/uL (0-1.0); Monocytes % (A) 5 %; Neutrophils # (A) 5.7 k/uL (1.3-7.7); Neutrophils % (A) 79 %; Platelet Count 211 k/uL (150-450); RBC 3.57 m/uL (3.80-5.40); RDW 13.3 % (11.5-15.5); WBC 7.2 k/uL (3.8-10.6)
[2019-05-05 06:04] LABS: African American GFR (CKD) >90 (>60 ml/min/1.73 sqM); Anion Gap 8 mmol/L; Blood Urea Nitrogen 6 mg/dL (7-17); Calcium 8.5 mg/dL (8.4-10.2); Carbon Dioxide 27 mmol/L (22-30); Chloride 105 mmol/L (98-107); Glucose 135 mg/dL (74-99); Magnesium 1.9 mg/dL (1.6-2.3); Potassium 3.4 mmol/L (3.5-5.1); Sodium 140 mmol/L (137-145)
[2019-05-05 06:12] LABS: Glucose,Whole Blood 118 mg/dL (75-99)
[2019-05-05] MEDS: INSULIN ASPART (NovoLOG) 100 UNIT/ML VIAL SQ SCH ×3 (06:16→17:25)
[2019-05-05] MEDS: IPRATROPIUM-ALBUTEROL 3 ML NEB INHALATION SCH ×4 (07:00→22:20)
--- NOTE | 2019-05-05 08:55 | XR ---
EXAMINATION TYPE: XR chest 1V DATE OF EXAM: 05/05/2019 COMPARISON: 05/03/2019 HISTORY: Follow-up for pneumonia. Shortness of breath. TECHNIQUE: Single frontal view of the chest is obtained. FINDINGS: There are peripherally calcified breast implants partially obscuring the lower lungs. Biba silar airspace disease is seen however slightly increasing confluence in the prior of 05/03/2019. Coar sened interstitial lung markings are chronic. Cardiomediastinal silhouette is mildly enlarged and sta ble. There is diffuse osseous demineralization seen. No sizable pneumothorax. Chronic biapical pleura l thickening, right greater than left is noted. IMPRESSION: Worsening bibasilar airspace disease. Given the basilar predominance aspiration pneumoni a should be considered. Two-view chest x-ray is recommended for subsequent follow-up exams given the partial obscuration by calcified breast implants on the frontal view.
[2019-05-05] MEDS: POTASSIUM BICARBONATE/CIT AC 20 MEQ TABLET.EFF NG-TUBE SCH (09:05)
[2019-05-05] MEDS: FAMOTIDINE 20 MG/2 ML VIAL IV SCH ×2 (09:05→22:44)
[2019-05-05] MEDS: LISINOPRIL 20 MG TAB PO SCH (09:05)
[2019-05-05] MEDS: HEPARIN SODIUM,PORCINE 5,000 UNIT/ML 1 ML VIAL SQ SCH ×2 (09:05→16:10)
[2019-05-05] MEDS: MAGNESIUM SULFATE-D5W PMX 1 GM in DEXTROSE/WATER 1 100ML.BAG IVPB SCH ×2 (09:06→11:52)
--- NOTE | 2019-05-05 10:24 | P.PN ---
Subjective Progress Note Date: 05/05/19 CHIEF COMPLAINT: PEG tube placement HISTORY OF PRESENT ILLNESS: Patient seen and examined this morning the bedside. She denies abdominal pain. Denies nausea or vomiting. She denies shortness of breath. Tube feeding infusing at 20cc/hr. WBC 7.2. Hemoglobin 11.2. Potassium 3.4. Magnesium 1.9. PHYSICAL EXAM: VITAL SIGNS: Reviewed GENERAL: Well-developed in no acute distress. Thin. HEENT: No sclera icterus. Extraocular movements grossly intact. Moist buccal mucosa. Head is atraumatic, normocephalic. Hears conversational speech. No nasal drainage. NECK: Supple without lymphadenopathy. CHEST: Non-labored respirations and equal bilateral excursions. CARDIOVASCULAR: Regular rate with regular rhythm. Palpable 2+ radial pulses. ABDOMEN: Soft. Nondistended. Nontender. PEG tube site clean dry and intact without drainage or signs of infection. MUSCULOSKELETAL: No clubbing, cyanosis or edema. NEUROLOGIC: No focal or lateralizing signs. Cranial nerves II through XII grossly intact. Speech difficult to understand at times. PSYCH: Appropriate affect. Alert and oriented. SKIN: Well perfused. Good skin turgor. ASSESSMENT: 1. Dysphagia 2. Moderate protein calorie malnutrition 3. Status post PEG tube insertion 4. Hypokalemia 5. Hypomagnesemia 6. Acute hypoxic respiratory failure, possible aspiration pneumonia PLAN: Continue tube feedings. Advance as tolerated. Patients head of bed to be up at all times while receiving tube feedings. Continue aspiration precautions. Pulmonary following. Replace potassium. Nurse practitioner note has been reviewed by physician. Signing provider agrees with the documented findings, assessment, and plan of care. Objective - Vital Signs Vital signs: Vital Signs Temp 97.8 F 05/05/19 08:00 Pulse 91 05/05/19 09:00 Resp 27 H 05/05/19 09:00 BP 162/92 05/05/19 09:00 Pulse Ox 91 L 05/05/19 09:00 Intake & Output 05/04/19 05/05/19 05/05/19 18:59 06:59 18:59 Intake Total 1050 920 60 Output Total 365 438 45 Balance 685 482 15 Weight 47.5 kg 47.6 kg Intake: IV 940 660 40 Magnesium Sulfate-D5w Pmx 200 1 gm In Dextrose/Water 1 100ml.bag @ 100 mls/hr IVPB Q1H [facility] Rx#: [id number] Piperacillin-Tazobactam 3 100 200 .375 gm In Sodium Chloride 0.9% 100 ml @ 25 mls/hr IVPB Q8H [facility] Rx#: [id number] Potassium Chloride 10 meq 300 In Water For Injection 1 100ml.bag @ 100 mls/hr IVPB Q1HR [facility] Rx#: [id number] Sodium Chloride 0.9% 1, 100 220 20 000 ml @ 20 mls/hr IV . Q24H [facility] Rx#:[id number] Sodium Chloride 0.9% 1, 240 240 20 000 ml @ 20 mls/hr IV . Q24H [place] with Mvi, Adult No.4 with Vit K 10 ml with Thiamine 100 mg with Folic Acid 1 mg Rx#: [id number] Tube Feeding 50 170 20 Other 60 90 Output: Urine 365 438 45 Other: Voiding Method Indwelling Catheter Indwelling Catheter Indwelling Catheter - Labs CBC & Chem 7: 05/05/19 05:01 05/05/19 05:01 Labs: Abnormal Lab Results - Last 24 Hours (Table) 05/04/19 05/04/19 05/05/19 Range/Units 12:05 17:56 05:01 RBC 3.57 L (3.80-5.40) m/uL Hgb 11.2 L (11.4-16.0) gm/dL Lymphocytes # 0.8 L (1.0-4.8) k/uL Potassium (3.5-5.1) mmol/L BUN (7-17) mg/dL Creatinine (0.52-1.04) mg/dL Glucose (74-99) mg/dL POC Glucose (mg/dL) 123 H 117 H (75-99) mg/dL 05/05/19 05/05/19 Range/Units 05:01 06:10 RBC (3.80-5.40) m/uL Hgb (11.4-16.0) gm/dL Lymphocytes # (1.0-4.8) k/uL Potassium 3.4 L (3.5-5.1) mmol/L BUN 6 L (7-17) mg/dL Creatinine 0.48 L (0.52-1.04) mg/dL Glucose 135 H (74-99) mg/dL POC Glucose (mg/dL) 118 H (75-99) mg/dL Assessment and Plan (1) Dehydration Current Visit: Yes Status: Acute Code(s): E86.0 - DEHYDRATION SNOMED Code(s): 73053811 (2) Dysphasia Current Visit: Yes Status: Acute Code(s): R47.02 - DYSPHASIA SNOMED Code(s): 52350087 (3) Failure to thrive Current Visit: Yes Status: Acute Code(s): IPH8184 - SNOMED Code(s): 26397368
[2019-05-05 12:02] LABS: Glucose,Whole Blood 122 mg/dL (75-99)
[2019-05-05] MEDS: MORPHINE SULFATE 2 MG/ML SYRINGE IVP PRN ×3 (13:52→23:48)
--- NOTE | 2019-05-05 14:06 | P.PN ---
Subjective Progress Note Date: 05/05/19 Principal diagnosis: Acute aspiration pneumonia A 74-year-old female patient who was transferred to the intensive care unit after the patient became short of breath. The patient had effective insertion and she was started on enteral feeding for nutritional support. Apparently she was putting her back down flat antral suspected and the patient could've aspirated her tube feeds. Currently the patient 100% nonrebreather facemask pH equal to the ICU. She has a very weak cough. Her blood pressure with a pH of 7.39 with a pCO2 of 43 and pO2 172. She is lethargic. She is sleepy. She is extremely weak. Her chest x-ray showing worsening bibasilar pulmonary infiltrates and small effusions. Contacted the family and the daughter tells the that the patient as a DNR/DNI CODE STATUS. Upon review of the records, this patient has been having progressive worsening in neurologic functions. Based on the neuro records, the patient was seen by Dr. Gonzales who noted intact mental status, normal speech and 5-/5 strength in the proximal BLE. She did have CT L- spine that showed disc bulges with neuroforaminal stenosis. Since the above hospitalization, patient has gone on to see numerous neurologists who did a plethora of neuro testing including MRIs and blood tests. There were talks about CSF analysis and muscle biopsy. Patient was hospitalized because of progressive weakness, recurrent falls, difficulty with swallowing with unintentional weight loss. She has difficulty even swallowing water that can cause her to choke. She did have an EMG/NCS, but not by neuromuscular subspecialist. Neurologically, patient denies decreased level or loss of consciousness, cognitive changes, headache, changes in vision, diplopia, amaurosis, facial numbness or droop, ptosis, vertigo, aphasia, other focal numbness/weakness not mentioned above, tremors or bowel/bladder incontinence. He is on these ongoing problems, the patient had a PEG tube insertion. 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 She is nonambulatory. Reevaluated today on 05/04/2019, patient looks quite frail, cachectic, in no form of respiratory distress, she is on tube feeding at 10 mL/h, patient has difficulty with speech and she had difficulty with swallowing. She clearly has moderate protein calorie malnutrition. Being followed by multiple consultants including neurology. Obviously the patient has been experiencing progressive m uscle atrophy weakness and ataxia bulbar dysfunction and I have a feeling that the patient may have underlying motor neuron disease, and clearly the prognosis is extremely poor. Labs from today were all reviewed. Potassium is a bit low at 3.3. Patient was reevaluated today on 05/05/2019, remains in the ICU, however I plan to transfer the patient out of the ICU today to a regular medical floor. Patient remains on tube feeding, tolerating tube feeding well, she is on few liters nasal cannula, O2 saturation is in the 90s. Continues to have significant dysarthria, difficulty swallowing, and continues to have significant muscle atrophy and weakness. Labs were reviewed, potassium is up to 3.8. CBC and basic metabolic profile are relatively normal. Objective - Vital Signs Vital signs: Vital Signs Temp 97.8 F 05/05/19 12:00 Pulse 96 05/05/19 13:00 Resp 21 05/05/19 13:00 BP 153/87 05/05/19 13:00 Pulse Ox 90 L 05/05/19 13:00 Intake & Output 05/04/19 05/05/19 05/05/19 18:59 06:59 18:59 Intake Total 1050 920 385 Output Total 365 438 365 Balance 685 482 20 Weight 47.5 kg 47.6 kg 47.3 kg Intake: IV 940 660 180 Magnesium Sulfate-D5w Pmx 200 1 gm In Dextrose/Water 1 100ml.bag @ 100 mls/hr IVPB Q1H [facility] Rx#: [id number] Piperacillin-Tazobactam 3 100 200 .375 gm In Sodium Chloride 0.9% 100 ml @ 25 mls/hr IVPB Q8H [facility] Rx#: [id number] Potassium Chloride 10 meq 300 In Water For Injection 1 100ml.bag @ 100 mls/hr IVPB Q1HR [facility] Rx#: [id number] Sodium Chloride 0.9% 1, 100 220 20 000 ml @ 20 mls/hr IV . Q24H [facility] Rx#:[id number] Sodium Chloride 0.9% 1, 240 240 160 000 ml @ 20 mls/hr IV . Q24H [facility] with Mvi, Adult No.4 with Vit K 10 ml with Thiamine 100 mg with Folic Acid 1 mg Rx#: [id number] Tube Feeding 50 170 145 Other 60 90 60 Output: Urine 365 438 365 Other: Voiding Method Indwelling Catheter Indwelling Catheter Indwelling Catheter - Exam Physical Exam: Revealed a thin cachectic and emaciated malnourished female. Head: Atraumatic, normocephalic. HEENT:[Neck is supple.] [No neck masses.] [No thyromegaly.] [No JVD.] PERRLA, EOMI, neck tightness. Chest: [Symmetrical chest expansion, crackles at the bases especially at the right base. No rhonchi no wheezes..] Cardiac Exam: [Normal S1 and S2, no S3 gallop, no murmur.] Abdomen: [Soft, nontender, no megaly, no rebound, no guarding, normal bowel sounds.] Extremities: [No clubbing, no edema, no cyanosis.] Significant muscle wasting and atrophy is noted. Neurological Exam: Patient is dysarthric, difficult to understand, no tongue fasciculation is noted. Generalized motor weakness is noted and generalized muscle atrophy is noted. Sensory was not assessed. Lymphatics: No lymphadenopathy. Skin: No rashes. - Labs CBC & Chem 7: 05/05/19 05:01 05/05/19 11:34 Labs: Abnormal Lab Results - Last 24 Hours (Table) 05/04/19 05/05/19 05/05/19 Range/Units 17:56 05:01 05:01 RBC 3.57 L (3.80-5.40) m/uL Hgb 11.2 L (11.4-16.0) gm/dL Lymphocytes # 0.8 L (1.0-4.8) k/uL Potassium 3.4 L (3.5-5.1) mmol/L BUN 6 L (7-17) mg/dL Creatinine 0.48 L (0.52-1.04) mg/dL Glucose 135 H (74-99) mg/dL POC Glucose (mg/dL) 117 H (75-99) mg/dL 05/05/19 05/05/19 Range/Units 06:10 12:01 RBC (3.80-5.40) m/uL Hgb (11.4-16.0) gm/dL Lymphocytes # (1.0-4.8) k/uL Potassium (3.5-5.1) mmol/L BUN (7-17) mg/dL Creatinine (0.52-1.04) mg/dL Glucose (74-99) mg/dL POC Glucose (mg/dL) 118 H 122 H (75-99) mg/dL Assessment and Plan Assessment: Impression: 1: Acute aspiration pneumonia with acute hypoxic respiratory failure secondary to pneumonia. 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 3 progressive muscle weakness/atrophy along with ataxia and bulbar dysfunction with fasciculation and hyperreflexia. Consider multisystem atrophy. Neurology is on the case. 4 history of CVA 5 hypothyroidism 6 hyperlipidemia 7 chronic degenerative arthritis 8 history of falls with rib fractures Plan: Continue present supportive care measures, continue PEG tube feeding, we will arrange for the patient to transfer out of the ICU, psychologist social to evaluate for placement on this patient, prognosis remains extremely poor and guarded Time with Patient: Less than 30
[2019-05-05] MEDS: SODIUM CHLORIDE 0.9% 1,000 ML with MVI, ADULT NO.4 WITH VIT K 10 ML, THIAMINE 100 MG, F... IV SCH ×4 (14:29)
[2019-05-05 17:27] LABS: Glucose,Whole Blood 122 mg/dL (75-99)
--- NOTE | 2019-05-05 22:29 | PN ---
PROGRESS NOTE CHIEF COMPLAINT: ALS and aspiration. HISTORY OF PRESENT ILLNESS: This lady is quite awake and alert and seems to be improving. Tube feedings have been reintroduced. PHYSICAL EXAMINATION: Chest is quite clear. There are no rales or rhonchi. Cardiac exam is normal. IMPRESSION: 1. Amyotrophic lateral sclerosis. 2. Aspiration pneumonia. PLAN: Continue to progress tube feedings while working on a discharge plan and location. MMODL / IJN: [id number] /
[2019-05-05] MEDS: LEVOTHYROXINE IVP 100 MCG/5 ML VIAL IV SCH (23:36)
[2019-05-06] MEDS: HEPARIN SODIUM,PORCINE 5,000 UNIT/ML 1 ML VIAL SQ SCH ×4 (01:54→23:29)
[2019-05-06] MEDS: INSULIN ASPART (NovoLOG) 100 UNIT/ML VIAL SQ SCH ×4 (02:13→17:31)
[2019-05-06] MEDS: PIPERACILLIN-TAZOBACTAM 3.375 GM in SODIUM CHLORIDE 0.9% 100 ML IVPB SCH ×3 (03:54→18:05)
[2019-05-06 05:53] LABS: Glucose,Whole Blood 130 mg/dL (75-99)
[2019-05-06 06:04] VITALS: RESP 20
[2019-05-06 07:26] LABS: Glucose,Whole Blood 126 mg/dL (75-99)
[2019-05-06] MEDS: LISINOPRIL 20 MG TAB PO SCH (07:49)
[2019-05-06] MEDS: FAMOTIDINE 20 MG/2 ML VIAL IV SCH ×2 (07:49→21:37)
[2019-05-06] MEDS: IPRATROPIUM-ALBUTEROL 3 ML NEB INHALATION SCH ×4 (07:51→19:22)
[2019-05-06 09:48] LABS: ALT 27 U/L (9-52); AST 23 U/L (14-36); African American GFR (CKD) >90 (>60 ml/min/1.73 sqM); Albumin 2.6 g/dL (3.5-5.0); Alkaline Phosphatase 54 U/L (38-126); Anion Gap 2 mmol/L; Blood Urea Nitrogen 6 mg/dL (7-17); Calcium 8.2 mg/dL (8.4-10.2); Carbon Dioxide 34 mmol/L (22-30); Chloride 104 mmol/L (98-107); Glucose 124 mg/dL (74-99); Phosphorus 3.4 mg/dL (2.5-4.5); Potassium 3.6 mmol/L (3.5-5.1); Sodium 140 mmol/L (137-145); Total Bilirubin 0.5 mg/dL (0.2-1.3); Total Protein 5.3 g/dL (6.3-8.2)
[2019-05-06] MEDS: SODIUM CHLORIDE 0.9% 1,000 ML with MVI, ADULT NO.4 WITH VIT K 10 ML, THIAMINE 100 MG, F... IV SCH ×4 (10:35)
--- NOTE | 2019-05-06 11:46 | P.PN ---
Subjective Progress Note Date: 05/06/19 CHIEF COMPLAINT: PEG tube placement HISTORY OF PRESENT ILLNESS: Patient seen and examined this morning the bedside. She denies abdominal pain. Denies nausea or vomiting. Tube feedings infusing at 25 mL an hour. Patient tolerating well. She remains on 15 L high flow nasal cannula. PHYSICAL EXAM: VITAL SIGNS: Reviewed GENERAL: Well-developed in no acute distress. Thin. HEENT: No sclera icterus. Extraocular movements grossly intact. Moist buccal mucosa. Head is atraumatic, normocephalic. Hears conversational speech. No nasal drain age. NECK: Supple without lymphadenopathy. CHEST: Non-labored respirations and equal bilateral excursions. CARDIOVASCULAR: Regular rate with regular rhythm. Palpable 2+ radial pulses. ABDOMEN: Soft. Nondistended. Nontender. PEG tube site clean dry and intact without drainage or signs of infection. MUSCULOSKELETAL: No clubbing, cyanosis or edema. NEUROLOGIC: No focal or lateralizing signs. Cranial nerves II through XII grossly intact. Speech difficult to understand at times. PSYCH: Appropriate affect. Alert and oriented. SKIN: Well perfused. Good skin turgor. ASSESSMENT: 1. Dysphagia 2. Moderate protein calorie malnutrition 3. Status post PEG tube insertion 4. Hypokalemia 5. Hypomagnesemia 6. Acute hypoxic respiratory failure secondary to aspiration pneumonia PLAN: Continue tube feedings. Patients head of bed to be up at all times while receiving tube feedings. Continue aspiration precautions. Pulmonary following. Stable from a surgical standpoint. We will sign off. please reconsult if needed Nurse practitioner note has been reviewed by physician. Signing provider agrees with the documented findings, assessment, and plan of care. Objective - Vital Signs Vital signs: Vital Signs Temp 97.6 F 05/06/19 06:03 Pulse 86 05/06/19 08:01 Resp 20 05/06/19 06:03 BP 146/80 05/06/19 06:03 Pulse Ox 95 05/06/19 07:55 Intake & Output 05/05/19 05/06/19 05/06/19 18:59 06:59 18:59 Intake Total 425 75 200 Output Total 940 250 Balance -515 -175 200 Weight 47.3 kg 48.5 kg Intake: IV 220 Sodium Chloride 0.9% 1, 20 000 ml @ 20 mls/hr IV . Q24H [facility] Rx#:[id number] Sodium Chloride 0.9% 1, 200 000 ml @ 20 mls/hr IV . Q24H [facility] with Mvi, Adult No.4 with Vit K 10 ml with Thiamine 100 mg with Folic Acid 1 mg Rx#: [id number] Tube Feeding 145 75 200 Other 60 Output: Urine 940 250 Uretheral ([facility]) 250 Other: Voiding Method Indwelling Catheter Indwelling Catheter Indwelling Catheter - Labs CBC & Chem 7: 05/05/19 05:01 05/06/19 09:19 Labs: Abnormal Lab Results - Last 24 Hours (Table) 05/05/19 05/05/19 05/06/19 Range/Units 12:01 17:21 05:49 Carbon Dioxide (22-30) mmol/L BUN (7-17) mg/dL Glucose (74-99) mg/dL POC Glucose (mg/dL) 122 H 122 H 130 H (75-99) mg/dL Calcium (8.4-10.2) mg/dL Total Protein (6.3-8.2) g/dL Albumin (3.5-5.0) g/dL 05/06/19 05/06/19 Range/Units 07:21 09:19 Carbon Dioxide 34 H (22-30) mmol/L BUN 6 L (7-17) mg/dL Glucose 124 H (74-99) mg/dL POC Glucose (mg/dL) 126 H (75-99) mg/dL Calcium 8.2 L (8.4-10.2) mg/dL Total Protein 5.3 L (6.3-8.2) g/dL Albumin 2.6 L (3.5-5.0) g/dL Assessment and Plan (1) Dehydration Current Visit: Yes Status: Acute Code(s): E86.0 - DEHYDRATION SNOMED Code(s): 43255662 (2) Dysphasia Current Visit: Yes Status: Acute Code(s): R47.02 - DYSPHASIA SNOMED Code(s): 65777972 (3) Failure to thrive Current Visit: Yes Status: Acute Code(s): QLA8864 - SNOMED Code(s): 13730238
[2019-05-06 12:06] LABS: Glucose,Whole Blood 92 mg/dL (75-99)
[2019-05-06 13:40] VITALS: BMI 17.2
--- NOTE | 2019-05-06 13:41 | P.PN ---
Subjective Progress Note Date: 05/06/19 Principal diagnosis: Acute aspiration pneumonia A 74-year-old female patient who was transferred to the intensive care unit after the patient became short of breath. The patient had effective insertion and she was started on enteral feeding for nutritional support. Apparently she was putting her back down flat antral suspected and the patient could've aspirated her tube feeds. Currently the patient 100% nonrebreather facemask pH equal to the ICU. She has a very weak cough. Her blood pressure with a pH of 7.39 with a pCO2 of 43 and pO2 172. She is lethargic. She is sleepy. She is extremely weak. Her chest x-ray showing worsening bibasilar pulmonary infiltrates and small effusions. Contacted the family and the daughter tells the that the patient as a DNR/DNI CODE STATUS. Upon review of the records, this patient has been having progressive worsening in neurologic functions. Based on the neuro records, the patient was seen by Dr. Gonzales who noted intact mental status, normal speech and 5-/5 strength in the proximal BLE. She did have CT L- spine that showed disc bulges with neuroforaminal stenosis. Since the above hospitalization, patient has gone on to see numerous neurologists who did a plethora of neuro testing including MRIs and blood tests. There were talks about CSF analysis and muscle biopsy. Patient was hospitalized because of progressive weakness, recurrent falls, difficulty with swallowing with unintentional weight loss. She has difficulty even swallowing water that can cause her to choke. She did have an EMG/NCS, but not by neuromuscular subspecialist. Neurologically, patient denies decreased level or loss of consciousness, cognitive changes, headache, changes in vision, diplopia, amaurosis, facial numbness or droop, ptosis, vertigo, aphasia, other focal numbness/weakness not mentioned above, tremors or bowel/bladder incontinence. He is on these ongoing problems, the patient had a PEG tube insertion. 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 She is nonambulatory. Reevaluated today on 05/04/2019, patient looks quite frail, cachectic, in no form of respiratory distress, she is on tube feeding at 10 mL/h, patient has difficulty with speech and she had difficulty with swallowing. She clearly has moderate protein calorie malnutrition. Being followed by multiple consultants including neurology. Obviously the patient has been experiencing progressive m uscle atrophy weakness and ataxia bulbar dysfunction and I have a feeling that the patient may have underlying motor neuron disease, and clearly the prognosis is extremely poor. Labs from today were all reviewed. Potassium is a bit low at 3.3. Patient was reevaluated today on 05/05/2019, remains in the ICU, however I plan to transfer the patient out of the ICU today to a regular medical floor. Patient remains on tube feeding, tolerating tube feeding well, she is on few liters nasal cannula, O2 saturation is in the 90s. Continues to have significant dysarthria, difficulty swallowing, and continues to have significant muscle atrophy and weakness. Labs were reviewed, potassium is up to 3.8. CBC and basic metabolic profile are relatively normal. On 05/06/2019 patient seen in follow-up on medical surgical floor. She is lethargic, but easily arousable, her speech is hard to understand, is quite jumbled, but patient does not look like she is in any distress, she remains on 15 L high flow oxygen and her pulse ox is 95%, we will wean the oxygen to keep her pulse ox of 90-92%. Lung sounds are diminished, her cough is weak, she is afebrile. She is tolerating her tube feeds, have been unable to obtain a sputum specimen, vital signs have been stable, patient is on Zosyn for antibiotic coverage, today's labs have been reviewed. BMP was done only, no CBC, serum sodium was 140, potassium is 3.6, chloride was 104, CO2 34, BUN was 6 and creatinine was 0.65. Clinical patient is asymptomatic, will continue weaning the oxygen. Objective - Vital Signs Vital signs: Vital Signs Temp 97.6 F 05/06/19 06:03 Pulse 84 05/06/19 11:54 Resp 20 05/06/19 06:03 BP 146/80 05/06/19 06:03 Pulse Ox 95 05/06/19 07:55 Intake & Output 05/05/19 05/06/19 05/06/19 18:59 06:59 18:59 Intake Total 425 75 200 Output Total 940 250 Balance -515 -175 200 Weight 47.3 kg 48.5 kg Intake: IV 220 Sodium Chloride 0.9% 1, 20 000 ml @ 20 mls/hr IV . Q24H [facility] Rx#:[id number] Sodium Chloride 0.9% 1, 200 000 ml @ 20 mls/hr IV . Q24H [facility] with Mvi, Adult No.4 with Vit K 10 ml with Thiamine 100 mg with Folic Acid 1 mg Rx#: [id number] Tube Feeding 145 75 200 Other 60 Output: Urine 940 250 Uretheral ([facility]) 250 Other: Voiding Method Indwelling Catheter Indwelling Catheter Indwelling Catheter - Exam GENERAL EXAM: Lethargic but arousable, cachectic looking 74-year-old frail white female, who is difficult to understand, her speech is jumbled comfortable in no apparent distress. Currently on 15 L of oxygen a pulse ox of 95% HEAD: Normocephalic/atraumatic. EYES: Normal reaction of pupils, equal size. Conjunctiva pink, sclera white. NOSE: Clear with pink turbinates. THROAT: No erythema or exudates. NECK: No masses, no JVD, no thyroid enlargement, no adenopathy. CHEST: No chest wall deformity. Symmetrical expansion. LUNGS: Equal air entry with no crackles, wheeze, rhonchi or dullness. CVS: Regular rate and rhythm, normal S1 and S2, no gallops, no murmurs, no rubs ABDOMEN: Soft, nontender. No hepatosplenomegaly, normal bowel sounds, no guarding or rigidity. PEG tube is present, with tube feedings infusing EXTREMITIES: No clubbing, no edema, no cyanosis, 2+ pulses and upper and lower extremities. MUSCULOSKELETAL: Muscle strength and tone normal. SPINE: No scoliosis or deformity SKIN: No rashes CENTRAL NERVOUS SYSTEM: Unable to assess. No focal deficits, tone is normal in all 4 extremities. - Labs CBC & Chem 7: 05/05/19 05:01 05/06/19 09:19 Labs: Abnormal Lab Results - Last 24 Hours (Table) 05/05/19 05/06/19 05/06/19 Range/Units 17:21 05:49 07:21 Carbon Dioxide (22-30) mmol/L BUN (7-17) mg/dL Glucose (74-99) mg/dL POC Glucose (mg/dL) 122 H 130 H 126 H (75-99) mg/dL Calcium (8.4-10.2) mg/dL Total Protein (6.3-8.2) g/dL Albumin (3.5-5.0) g/dL 05/06/19 Range/Units 09:19 Carbon Dioxide 34 H (22-30) mmol/L BUN 6 L (7-17) mg/dL Glucose 124 H (74-99) mg/dL POC Glucose (mg/dL) (75-99) mg/dL Calcium 8.2 L (8.4-10.2) mg/dL Total Protein 5.3 L (6.3-8.2) g/dL Albumin 2.6 L (3.5-5.0) g/dL Assessment and Plan Plan: 1: Acute aspiration pneumonia with acute hypoxic respiratory failure secondary to pneumonia. 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 3 progressive muscle weakness/atrophy along with ataxia and bulbar dysfunction with fasciculation and hyperreflexia. Consider multisystem atrophy. Neurology is on the case. 4 history of CVA 5 hypothyroidism 6 hyperlipidemia 7 chronic degenerative arthritis 8 history of falls with rib fractures Plan: Continue weaning FiO2 to maintain O2 sat at 90-92%, head of the bed up at 30 at all times, maintain aspiration precautions, but aside are stable, patient is afebrile, no acute events overnight, tolerating tube feedings, clinically asymptomatic. Continue with current antibiotic coverage, continue with nebulized bronchodilators, GI and DVT prophylaxis. Patient can be evaluated for discharge to [facility], will continue weaning FiO2 within the acceptable range for correction admission I performed a history & physical examination of the patient and discussed their management with my nurse practitioner, Shanell Clements. I reviewed the nurse practitioner's note and agree with the documented findings and plan of care. Lung sounds are positive for dementia breath sounds. The findings and the impression was discussed with the patient. I attest to the documentation by the nurse practitioner. Time with Patient: Less than 30
[2019-05-06] MEDS: LORazepam 2 MG/ML INJ IV PRN ×2 (14:11→21:40)
--- NOTE | 2019-05-06 16:42 | PN ---
PROGRESS NOTE CHIEF COMPLAINT: ALS and aspiration pneumonia. HISTORY OF PRESENT ILLNESS: This lady seems to be doing fairly well. Tube feedings have been resumed. Discharge arrangements and plan will have to be in place soon. PHYSICAL EXAMINATION: Chest is quite clear and cardiac exam is normal. Abdomen is soft and there are no masses. IMPRESSION: 1. Amyotrophic lateral sclerosis. 2. Aspiration pneumonia. PLAN: Continue supportive care and start to consider discharge arrangements. MMODL / IJN: [id number] /
[2019-05-06 17:34] LABS: Glucose,Whole Blood 99 mg/dL (75-99)
[2019-05-06] MEDS: LEVOTHYROXINE IVP 100 MCG/5 ML VIAL IV SCH (21:37)
[2019-05-07] MEDS: INSULIN ASPART (NovoLOG) 100 UNIT/ML VIAL SQ SCH ×4 (00:44→17:44)
[2019-05-07 00:55] LABS: Glucose,Whole Blood 90 mg/dL (75-99)
[2019-05-07] MEDS: PIPERACILLIN-TAZOBACTAM 3.375 GM in SODIUM CHLORIDE 0.9% 100 ML IVPB SCH ×3 (02:23→17:44)
[2019-05-07 05:59] LABS: Glucose,Whole Blood 104 mg/dL (75-99)
[2019-05-07 06:23] VITALS: BP 153/78; TEMP 97.5
[2019-05-07] MEDS: FAMOTIDINE 20 MG/2 ML VIAL IV SCH (08:09)
[2019-05-07] MEDS: HEPARIN SODIUM,PORCINE 5,000 UNIT/ML 1 ML VIAL SQ SCH ×2 (08:09→16:02)
[2019-05-07] MEDS: LISINOPRIL 20 MG TAB PO SCH (08:09)
[2019-05-07] MEDS: IPRATROPIUM-ALBUTEROL 3 ML NEB INHALATION SCH ×3 (08:18→17:35)
[2019-05-07 09:21] LABS: ALT 26 U/L (9-52); AST 23 U/L (14-36); African American GFR (CKD) >90 (>60 ml/min/1.73 sqM); Albumin 2.7 g/dL (3.5-5.0); Alkaline Phosphatase 54 U/L (38-126); Anion Gap 5 mmol/L; Blood Urea Nitrogen 7 mg/dL (7-17); Calcium 8.2 mg/dL (8.4-10.2); Carbon Dioxide 33 mmol/L (22-30); Chloride 102 mmol/L (98-107); Glucose 119 mg/dL (74-99); Magnesium 1.9 mg/dL (1.6-2.3); Phosphorus 3.6 mg/dL (2.5-4.5); Potassium 3.5 mmol/L (3.5-5.1); Sodium 140 mmol/L (137-145); Total Bilirubin 0.5 mg/dL (0.2-1.3); Total Protein 5.3 g/dL (6.3-8.2)
[2019-05-07 11:53] VITALS: PULSE 76
[2019-05-07] MEDS: SODIUM CHLORIDE 0.9% 1,000 ML with MVI, ADULT NO.4 WITH VIT K 10 ML, THIAMINE 100 MG, F... IV SCH ×4 (11:58)
--- NOTE | 2019-05-07 13:54 | XR ---
EXAMINATION TYPE: XR chest 2V DATE OF EXAM: 05/07/2019 COMPARISON: 05/05/2019 HISTORY: Shortness of breath. TECHNIQUE: Frontal and lateral views of the chest are obtained. FINDINGS: Right middle lobe and lingular opacities are seen on the lateral view with small bilateral layering pleural effusions. Interstitial prominence is noted throughout that is chronic. No sizable pneumothorax. 30 mediastinal silhouette is enlarged. Pulmonary vascular congestion is seen. Mild mult ilevel degenerative changes of the spine. Peripherally calcified breast prosthesis obscure the lower lungs on the frontal view. IMPRESSION: 1. Mild pulmonary vascular congestion and pleural effusions are likely on the basis of decompensated congestive heart failure. 2. In addition to bibasilar airspace disease there is right middle lobe airspace disease and lingular airspace disease more compatible with pneumonia versus confluent pulmonary edema.
--- NOTE | 2019-05-07 17:27 | DS ---
DISCHARGE SUMMARY CHIEF COMPLAINT: Difficulty swallowing, talking, and generalized weakness. HISTORY OF PRESENT ILLNESS AND PHYSICAL EXAMINATION: Details of this lady's history and physical can be found in the initial workup. LABORATORY STUDIES: While she was in the hospital she had laboratory studies, details of which can be found in the laboratory section of her chart. COURSE IN THE HOSPITAL: After admission she was placed on bedrest and started on intravenous fluids, and it was determined that she probably had amyotrophic lateral sclerosis. She was unable to swallow to maintain nutrition. At first she refused a PEG tube, but she was convinced to go through with this and this was placed. She was doing well and then she suddenly aspirated and had to be moved to the intensive care unit. She recovered from this and was doing well and the plan was for her to either go home or to an extended-care facility. At the time of discharge, the family is still thinking about hospice. FINAL DIAGNOSES: 1. Amyotrophic lateral sclerosis. 2. Dysphagia. 3. Aspiration pneumonia. OPERATION: PEG tube placement. CONSULTATIONS: 1. Neurology. 2. Surgery. She is improved. MMBRYN / BECKYN: [id number] /
[2019-05-07] MEDS ORDERED: LORazepam 0.5 MG TAB PO SCH (21:00)
== END 2019-05-07 18:30 | DRG 56 ==
LOC: EC 09:42 → 3NMEDONC 14:30 → OBSVTOIN 04-30 10:53 → 2SICU 05-03 08:20 → 4MS4W 05-05 17:09 → 4SSUR 05-07 17:26
PROVIDERS: ADMIT Family Medicine; ATTEND Family Medicine
PROC: 0DH63UZ Insertion of Feeding Device into Stomach, Percutaneous Approach (ICD-10-PCS; principal; 2019-05-01 07:30)
PROC: 3E0G76Z Introduction of Nutritional Substance into Upper GI, Via Natural or Artificial Opening (ICD-10-PCS; principal; 2019-05-01 07:30)
DX: G12.21 Amyotrophic lateral sclerosis (principal); J96.01 Acute respiratory failure with hypoxia; J69.0 Pneumonitis due to inhalation of food and vomit; E44.0 Moderate protein-calorie malnutrition; R64 Cachexia; Z68.1 Body mass index [BMI] 19.9 or less, adult; R62.7 Adult failure to thrive; R47.02 Dysphasia; E86.0 Dehydration; R55 Syncope and collapse; Z66 Do not resuscitate; R53.81 Other malaise; R27.0 Ataxia, unspecified; R13.10 Dysphagia, unspecified; F17.200 Nicotine dependence, unspecified, uncomplicated; E87.6 Hypokalemia; E83.42 Hypomagnesemia; E03.9 Hypothyroidism, unspecified; E11.9 Type 2 diabetes mellitus without complications; E78.00 Pure hypercholesterolemia, unspecified; E78.5 Hyperlipidemia, unspecified; M19.90 Unspecified osteoarthritis, unspecified site; R29.6 Repeated falls; F41.9 Anxiety disorder, unspecified; Z88.1 Allergy status to other antibiotic agents; Z82.61 Family history of arthritis; Z91.81 History of falling; Z86.73 Personal history of transient ischemic attack (TIA), and cerebral infarction without residual deficits; Z90.89 Acquired absence of other organs; Z98.890 Other specified postprocedural states
CPT/HCPCS: 36415; 36600; 43246; 70450; 71045; 71046; 80048; 80053; 81001; 82550; 82805; 83605; 83735; 83880; 84100; 84132; 84439; 84443; 84484; 85025; 85379; 85610; 85730; 93005; 94640; 94760; 96360; 96361; 99285